=== PATIENT | female | born 1985 | race Caucasian/White ===

== ENCOUNTER → 2017-12-26 09:00 | Outpatient (CLI) | payer OTHER, BC, SELFPAY | PROVIDERS: Family Provider Internal Medicine; PCP Internal Medicine; Visit Provider Internal Medicine | DX: G47.10 Hypersomnia, unspecified (principal) | CPT/HCPCS: 95806 ==

== ENCOUNTER → 2017-12-27 13:26 | Outpatient (CLI) | payer OTHER, BC, SELFPAY ==
--- NOTE | 2017-12-27 13:29 | US_ITS ---
STUDY: ULTRASOUND BREAST - RIGHT REASON FOR EXAM: Female, 32 years old. Pain in the right breast. TECHNIQUE: Axial and longitudinal images of the RIGHT breast were performed with a high resolution ultrasound transducer. COMPARISON: Comparison is made with prior mammogram done earlier in the day. FINDINGS: RIGHT Breast: The upper outer aspect of the right breast was examined by ultrasound. There is homogeneous fibroglandular tissue. No solid or cystic mass lesion is seen. US/Breast Limited Unilateral IMPRESSION: Unremarkable sonographic examination of the upper outer quadrant of the right breast. ASSESSMENT CATEGORY: BIRADS Category 1: Negative. A letter regarding these results will be sent to the patient by the facility within 30 days. Electronically Signed: Watson Meadows MD at 7:52 EDT Tel [phone], Service support ,
--- NOTE | 2017-12-27 13:48 | BI_ITS ---
MAMMOGRAPHY - BILATERAL DIAGNOSTIC REASON FOR EXAM: Female, 32 years old. Right lateral breast tenderness. PERTINENT HISTORY: Non-contributory. TECHNIQUE: Digital bilateral breast kathia (3D mammographic acquisition) in the CC and MLO projections. 2-D mediolateral oblique (MLO) and craniocaudad (CC) views of both breasts were obtained. CAD: Full Field Digital Mammography with Computer Added Detection was performed. COMPARISON: Comparison is made with prior operative examination dated September 11, 2012. FINDINGS: Breast Composition: There are scattered areas of fibroglandular density. There are no dominant masses or suspicious calcifications. No other significant abnormalities are identified. There has been no significant change since the prior study. BI/DIAG MAMM W/CAD, BILAT IMPRESSION: Stable bilateral diagnostic mammogram. With the patient's history of tenderness along the lateral aspect of the right breast, correlation with ultrasound is recommended. ASSESSMENT CATEGORY: BIRADS Category 0: Incomplete. Need additional imaging evaluation. A letter regarding these results will be sent to the patient by the facility within 30 days. Approximately 10% of breast cancers are not detected by mammography. A normal mammogram should not delay biopsy of a clinically suspicious abnormality. Electronically Signed: Watson Meadows MD at 7:51 EDT Tel [phone], Service support ,
== END ==
PROVIDERS: Family Provider Internal Medicine; PCP Internal Medicine; Visit Provider Internal Medicine
DX: N64.4 Mastodynia (principal)
CPT/HCPCS: 76642; 77062; 77066; G0279

== ENCOUNTER 2019-05-14 11:18 | Day surgery (SDC) | payer OTHER, BC, SELFPAY ==
--- NOTE | 2019-05-09 09:05 | PCM.HP.BLA ---
History and Physical Date of Admission: 05/14/19 Pre-Op History and Physical ? HPI: The patient is a 33 year old female presenting for pre-operative visit. She is scheduled for?hysteroscopy with endometrial ablation and cauterization of ectropion, for?menorrhagia and postcoital bleeding on?05/14/2018. ??Procedure discussed along with risks, benefits and complications. ?Other alternatives discussed for management. Consent form signed??yes.? PAST?MEDICAL?HISTORY PAST MEDICAL HISTORY Diagnosis Date ? Diarrhea ? ? Dysmenorrhea ? ? Transient hypertension of , antepartum ? ? Unspecified hemorrhoids without mention of complication ? ? ? PAST?SURGICAL?HISTORY PAST SURGICAL HISTORY Procedure Laterality Date ? HYSTEROSCOPY ? 07/27/2014 ? OVARIAN CYSTECTOMY ? 07/27/2014 ? PAST SURGICAL HISTORY OF ? 12/07 ? SHOULDER SURGERY ? ? CURRENT?MEDICATIONS Current Outpatient Medications Medication Sig Dispense Refill ? levonorgestrel-ethinyl estradiol (SIXTO) 0.15-0.03 mg per tab Take 1 tablet by mouth once daily. 1 Package 12 ? multivitamin (DAILY MULTI-VITAMIN) ORAL tablet ? ? 0 ? fluconazole (DIFLUCAN) 150 mg tablet Take 1 tablet today and repeat in 3 days if symptoms haven't improved. (Patient not taking: Reported on 12/11/2018 ) 2 tablet 0 ? naproxen (NAPROSYN) 375 mg tablet Take 1 tablet by mouth three times daily as needed (pain). (Patient not taking: Reported on 01/29/2019 ) 60 tablet 1 ? No current facility-administered medications for this visit.? ? ALLERGIES:?Patient has no known allergies. ? PERSONAL HISTORY:? SOCIAL?HISTORY Social History ??Socioeconomic History ?Marital status: ?Spouse name: DEVANTE ?Number of children: 3 ?Years of education: 16 ?Highest education level: Not on file ??Occupational History ?Occupation: TEACHER ?Employer: [email or web address] ?Comment: [employer] ??Social Needs ?Financial resource strain: Not on file ?Food insecurity: ?Worry: Not on file ?Inability: Not on file ?Transportation needs: ?Medical: Not on file ?Non-medical: Not on file ??Tobacco Use ?Smoking status: Never Smoker ?Smokeless tobacco: Never Used ??Substance and Sexual Activity ?Alcohol use: No ?Drug use: No ?Sexual activity: Yes ?Partners: Male ? control/protection: Surgical ?Comment: had vasectomy ??Lifestyle ?Physical activity: ?Days per week: Not on file ?Minutes per session: Not on file ?Stress: Not on file ??Relationships ?Social connections: ?Talks on phone: Not on file ?Gets together: Not on file ?Attends moravian service: Not on file ?Active member of club or organization: Not on file ?Attends meetings of clubs or organizations: Not on file ?Relationship status: Not on file ?Intimate partner violence: ?Fear of current or ex partner: Not on file ?Emotionally abused: Not on file ?Physically abused: Not on file ?Forced sexual activity: Not on file ??Other Topics ?Concerns: ?Not on file ??Social History Narrative ?Not on file ? FAMILY HISTORY:? FAMILY?HISTORY FAMILY HISTORY Problem Relation Age of Onset ? Hypertension Father ? ? Arthritis Maternal Grandmother ? ? Colon Cancer Maternal Grandfather ? ? Diabetes Paternal Grandmother ? ? Heart Paternal Grandfather ?[place] ? Breast Cancer Other ?PGAUNT X 2 ? REVIEW OF SYMPTOMS: GENERAL: denies fevers or chills ENDOCRINOLOGY: has not been on steroids Cardiology : denies palpitations or chest pain Respiratory: denies SOB or cough Hematology: denies history of prolonged bleeding or easy bruising or VTE Allergy: Denies history of personal or family history of allergy to anesthesia ? ? PHYSICAL EXAMINATION: ? VITALS:?Height 5' 4.25 (1.632 m), weight 202 lb (91.6 kg), last menstrual period 05/07/2019. ? GENERAL:??The patient is well nourished, well hydrated in no acute distress. ?, The patient is oriented to time, place, and person. NECK:?Supple. No lynphadenopathy, normal thyroid, no thyromegaly. LUNGS:?Clear to auscultation bilaterally. no wheezes, rhonchi or rales HEART:?Regular rate and rhythm, Normal heart sounds and No murmurs or gallops ??? IMPRESSION:?menorrhagia, postcoital bleeding w/ large ectropion ? PLAN:???The risks/benefits/alternatives and personal involved for the planned?hysteroscopy with endometrial ablation and cauterization of ectropion?were reviewed with the patient. Her questions were answered to her satisfaction and she desires to proceed. ?Consent was signed. ?I reviewed with her postop instructions and expectations. ? ? I have reviewed and updated past medical and surgical history, medications and allergies. This history and physical was completed in my office on 05/08/2019.
[2019-05-14] VITALS (7 sets, daily range): BP systolic 118–136; BP diastolic 67–91; PULSE 60–85; RESP 14–16; TEMP 36.1–36.8; O2SAT 97–99; BMI 34.2
[2019-05-14 11:44] LABS: Hematocrit 43.6 % (37-47); Hemoglobin 14.6 g/dL (12.0-15.0); Mean Corp Hgb Conc 33.5 g/dL (32-36); Mean Corpuscular Hgb 28.9 pg (27.0-32.0); Mean Corpuscular Volume 86.2 fL (81-99); Mean Platelet Vol. 9.7 fl (6.2-12.0); Platelet Count 274 K/mm3 (150-450); RBC Distribution Width CV 11.9 % (11.6-14.6); RBC Distribution Width SD 37.3 fl (35.1-43.9); Red Blood Count 5.06 M/mm3 (4.2-5.4); White Blood Count 7.5 K/mm3 (4.4-11.0)
[2019-05-14 11:48] LABS: Internal QC Validated? YES +Cl - CLEAR BKGD; Pregnancy, Urine Negative Negative
[2019-05-14] MEDS: Celecoxib 200 MG Capsule 400 MG PO (11:59)
[2019-05-14] MEDS: Acetaminophen 500 MG Tablet 1000 MG PO (11:59)
[2019-05-14] MEDS: Lactated Ringers 1,000 ML 75 ML IV (12:10)
[2019-05-14] MEDS: Lactated Ringers 1,000 ML 40 ML IV (12:10)
--- NOTE | 2019-05-14 13:55 | DCINST_ITS ---
Discharge Diet: No Restrictions Discharge Activity: Return to Normal Activity, May Shower, May Take a Tub Bath - in 2 weeks. Return to work on:: 05/18/19 May resume sexual activity in: 2 weeks Call your doctor if your incision/area has: Sudden Increased Bleeding, Foul Smelling Discharge Call your doctor if you observe: Fever of 101 or Higher, Using more than one pad per hour - for 2 hrs in a row Allergies/Adverse Reactions: Allergies No Known Allergies Allergy (Verified 05/12/19 15:29) Medications to take at Discharge Multivitamins,Therapeutic [Multivitamin] 1 tab PO DAILY 07/20/14 Primary Care Physician: Natasha Mojica MD [Primary Care Provider] - Test Results: Test results from this visit will be discussed in further detail at your follow- up appointment, if applicable. Please Follow Up With: Kalyn Nguyen MD - [phone]
--- NOTE | 2019-05-14 13:56 | PCM.OPRPT ---
Report of Operation Date of Procedure: 05/14/19 Pre-Operative Diagnosis: Postcoital bleeding and menorrhagia Post-Operative Diagnosis: Same Surgery/Procedure Performed:: Hysteroscopy with Savanah endometrial ablation and cauterization of ectocervix Description of Surgical Findings:: Normal cervix and vagina, normal endometrial cavity casing material weigher: miah payan Type of Anesthesia:: MAC/Supplemental/Local Anesthesiologist: Terry Martinez Special Medications: none Specimen's removed: none Drains: none Estimated Blood Loss (mL): 10 Fluids Replaced: 1000 cc Description of Procedure: The patient was taken to the OR where she was prepped and draped in dorsal lithotomy position. The weighted speculum was placed in the vagina and the anterior lip of the cervix was grasped with a single-tooth tenaculum. A paracervical block was administered with 1% lidocaine with 1-100,000 epinephrine solution. The cervix was dilated serially with Hegar dilators. The 5mm hysteroscope was placed into the uterine cavity and the above findings were noted. Bilateral tubal ostia were identified. The uterus sounded to 10cm and the cervical length was 4cm. The endometrial cavity length was 6cm. The hysteroscope was removed. The Savanah device was set to 6cm. The instrument was then seated into the endometrial cavity and the indicator was in the green. The cervical seal balloon was inflated and the uterine integrity test was passed. The ablation procedure was initiated and completed without interruption. During the ablation procedure gentle traction was held on the tenaculum and the Savanah device was held up against the uterine fundus. When the ablation procedure was completed the Savanah was removed. The ball cautery was used to cauterize the ectocervix. The tenaculum was removed and the ball cautery was used to cauterize the tenaculum sites that were bleeding. Then the tenaculum site was noted to be hemostatic. All sponge and needle counts were correct. A vaginal sweep was performed by me. The patient was awakened and taken to the recovery room in stable condition. Hysteroscopic ins: 200cc normal saline Hysteroscopic outs:150cc Findings: Endometrial cavity: Normal, no fibroids or polyps noted Cervix: Normal Vagina: Normal Grafts/Implants Used: none - Complications none - Admit VTE Documentation VTE Present on Admission: No VTE Mechan Device Prophylaxis: SCD's VTE Pharm Prophylaxis ordered?: No Reason prophylaxis not ordered:: Procedure Not Indicated
== END 2019-05-14 14:55 | disposition home or self-care (01) ==
LOC: SDC 11:23 → AC 11:24
PROVIDERS: Family Provider Internal Medicine; PCP Internal Medicine; Referring Provider Obstetrics & Gynecology; Visit Provider Obstetrics & Gynecology
PROC: 0U5B8ZZ Destruction of Endometrium, Via Natural or Artificial Opening Endoscopic (ICD-10-PCS; CPT 58558; principal; 2019-05-14 13:05)
DX: N93.0 Postcoital and contact bleeding (principal); N92.0 Excessive and frequent menstruation with regular cycle
CPT/HCPCS: 58563; 81025; 85027; J7120

== ENCOUNTER → 2019-12-09 | Outpatient (CLI) | payer OTHER, BC, SELFPAY ==
[2019-11-10 15:54] VITALS: BMI 34.2
[2019-12-09 13:15] LABS: Cholesterol 155 mg/dL (200); High Density Lipoprotein 48 mg/dL; T4 Free Direct 0.88 ng/dL (0.76-1.46); Thyroid Stim Hormone (TSH) 3.18 uIU/mL (0.358-3.74); Triglycerides 65 mg/dL; Very Low Density Lipoprotein 13 mg/dL (5-40)
[2019-12-16 05:00] LABS: T3 Reverse 13.9 ng/dL (9.2-24.1)
== END | disposition home or self-care (01) ==
LOC: BIMLAB 09:50
PROVIDERS: PCP Internal Medicine; Referring Provider Internal Medicine; Visit Provider Internal Medicine
DX: E03.9 Hypothyroidism, unspecified (principal)
CPT/HCPCS: 36415; 80061; 84439; 84443; 84482

== ENCOUNTER → 2019-12-22 | Outpatient (CLI) | payer OTHER, BC, SELFPAY ==
[2019-12-22 10:46] VITALS: BMI 34.2
--- NOTE | 2019-12-22 11:50 | EKG12_ITS ---
Test Reason : HTN Blood Pressure : / mmHG Vent. Rate : 060 BPM Atrial Rate : 060 BPM P-R Int : 156 ms QRS Dur : 096 ms QT Int : 430 ms P-R-T Axes : 012 070 025 degrees QTc Int : 430 ms Normal sinus rhythm Normal ECG Confirmed by MADELEINE MORE, MARY ([id number]), newspaper photo editor DESI WILSON ([id number]) on 12/23/2019 1:10:26 PM Referred By: Natasha Mojica Confirmed By:MARY SALVADOR MD
[2019-12-22 13:18] LABS: Anion Gap 7 (5-15); BUN 20 mg/dL (7-18); BUN/Creat Ratio 25.3 RATIO (10-20); Calcium,Total 8.5 mg/dL (8.5-10.1); Chloride 106 mmol/L (98-107); Creatinine, Serum 0.79 mg/dL (0.55-1.02); EST Glomerular Filtration Rate 88 mL/min (>60); Est Glom Filt Rate - Afr Amer 107 mL/min (>60); Glucose 96 mg/dL (74-106); Potassium 4.1 mmol/L (3.5-5.1); Sodium Level 140 mmol/L (136-145)
[2019-12-22 13:23] LABS: Hemoglobin A1c 4.7 % (3.8-5.6)
== END | disposition home or self-care (01) ==
PROVIDERS: PCP Internal Medicine; Referring Provider Internal Medicine; Visit Provider Internal Medicine
DX: E66.9 Obesity, unspecified (principal); R03.0 Elevated blood-pressure reading, without diagnosis of hypertension
CPT/HCPCS: 80048; 83036; 93005

== ENCOUNTER → 2020-01-29 | Outpatient (CLI) | payer OTHER, BC, SELFPAY ==
[2020-01-29 10:27] VITALS: BMI 34.2
[2020-01-29 12:28] LABS: Absolute Lymphocyte Count 2.55 X10^3/uL (0.83-4.51); Absolute Neutrophil Count 4.3 X10^3/uL (2.0-7.7); Basophil# 0.03 X10^3/uL; Basophil% 0.4 % (0-1); Eosinophil# 0.13 X10^3/uL; Eosinophils% 1.7 % (0-5); Hematocrit 44.6 % (37-47); Hemoglobin 14.5 g/dL (12.0-15.0); Lymphocyte # 2.55 X10^3/ul (4.0); Lymphocyte % 33.3 % (19-41); Mean Corp Hgb Conc 32.5 g/dL (32-36); Mean Corpuscular Hgb 28.7 pg (27.0-32.0); Mean Corpuscular Volume 88.1 fL (81-99); Mean Platelet Vol. 10.3 fl (6.2-12.0); Monocyte# 0.61 X10^3/uL; NRBC Flagged by Analyzer 0 % (0-5); Neutrophil # 4.29 X10^3/uL (2.7-7.7); Neutrophil % 56.1 % (47-70); Platelet Count 288 K/mm3 (150-450); RBC Distribution Width CV 11.9 % (11.6-14.6); RBC Distribution Width SD 38.5 fl (35.1-43.9); Red Blood Count 5.06 M/mm3 (4.2-5.4); White Blood Count 7.7 K/mm3 (4.4-11.0)
[2020-01-29 12:42] LABS: ALB/GLOB Ratio 0.9 RATIO (0.9-2.4); AST(SGOT) 22 U/L (15-37); Alanine Aminotransfer ALT/SGPT 37 U/L (13-56); Albumin, Serum 3.6 g/dL (3.2-5.0); Alkaline Phosphatase 95 U/L (45-117); Anion Gap 5 (5-15); BUN 18 mg/dL (7-18); BUN/Creat Ratio 19.8 RATIO (10-20); Calcium,Total 8.8 mg/dL (8.5-10.1); Chloride 106 mmol/L (98-107); Creatinine, Serum 0.91 mg/dL (0.55-1.02); EST Glomerular Filtration Rate 75 mL/min (>60); Est Glom Filt Rate - Afr Amer 91 mL/min (>60); Globulin 3.8 g/dL (2.2-4.2); Glucose 83 mg/dL (74-106); Potassium 3.9 mmol/L (3.5-5.1); Protein, Total 7.4 g/dL (6.4-8.2); Sodium Level 139 mmol/L (136-145)
== END | disposition home or self-care (01) ==
LOC: BIMLAB 10:52
PROVIDERS: PCP Internal Medicine; Referring Provider Internal Medicine; Visit Provider Internal Medicine
DX: E66.9 Obesity, unspecified (principal)
CPT/HCPCS: 36415; 80053; 85025

== ENCOUNTER → 2020-02-27 | Outpatient (CLI) | payer OTHER, BC, SELFPAY ==
[2020-02-25 16:22] VITALS: BMI 34.2
[2020-02-27 11:07] LABS: Absolute Lymphocyte Count 2.93 X10^3/uL (0.83-4.51); Absolute Neutrophil Count 4.5 X10^3/uL (2.0-7.7); Basophil# 0.04 X10^3/uL; Basophil% 0.5 % (0-1); Eosinophil# 0.18 X10^3/uL; Eosinophils% 2.2 % (0-5); Hemoglobin 14.3 g/dL (12.0-15.0); Lymphocyte # 2.93 X10^3/ul (4.0); Lymphocyte % 35.3 % (19-41); Mean Corp Hgb Conc 33.3 g/dL (32-36); Mean Corpuscular Hgb 29.2 pg (27.0-32.0); Mean Corpuscular Volume 87.8 fL (81-99); Mean Platelet Vol. 9.9 fl (6.2-12.0); Monocyte# 0.61 X10^3/uL; Monocyte% 7.4 % (0-10); NRBC Flagged by Analyzer 0 % (0-5); Neutrophil # 4.51 X10^3/uL (2.7-7.7); Neutrophil % 54.4 % (47-70); Platelet Count 270 K/mm3 (150-450); RBC Distribution Width CV 12.1 % (11.6-14.6); RBC Distribution Width SD 38.6 fl (35.1-43.9); White Blood Count 8.3 K/mm3 (4.4-11.0)
[2020-02-27 11:46] LABS: ALB/GLOB Ratio 0.9 RATIO (0.9-2.4); AST(SGOT) 13 U/L (15-37); Alanine Aminotransfer ALT/SGPT 24 U/L (13-56); Albumin, Serum 3.2 g/dL (3.2-5.0); Alkaline Phosphatase 84 U/L (45-117); Anion Gap 2 (5-15); BUN 15 mg/dL (7-18); BUN/Creat Ratio 15.9 RATIO (10-20); Calcium,Total 8.6 mg/dL (8.5-10.1); Chloride 108 mmol/L (98-107); Creatinine, Serum 0.94 mg/dL (0.55-1.02); EST Glomerular Filtration Rate 72 mL/min (>60); Est Glom Filt Rate - Afr Amer 87 mL/min (>60); Globulin 3.7 g/dL (2.2-4.2); Glucose 83 mg/dL (74-106); Potassium 4.2 mmol/L (3.5-5.1); Protein, Total 6.9 g/dL (6.4-8.2); Sodium Level 139 mmol/L (136-145)
== END | disposition home or self-care (01) ==
LOC: LAB 10:43
PROVIDERS: PCP Internal Medicine; Referring Provider Internal Medicine; Visit Provider Internal Medicine
DX: E66.9 Obesity, unspecified (principal); R03.0 Elevated blood-pressure reading, without diagnosis of hypertension
CPT/HCPCS: 36415; 80053; 85025

== ENCOUNTER 2022-08-02 06:21 | Day surgery (SDC) | payer OTHER, SELFPAY ==
--- NOTE | 2022-07-23 16:42 | PCM.HP.BLA ---
History and Physical Date of Admission: 08/02/22 HPI: The patient is a 36 year old female presenting for pre-operative visit. She is scheduled for TLH, bilateral salpingectomy, for menorrhagia, intramural uterine fibroids and failed endometrial ablation on 08/02/22. Procedure discussed along with risks, benefits and complications. Other alternatives discussed for management. Consent form signed? Yes. ? ? PAST MEDICAL HISTORY PAST MEDICAL HISTORY Diagnosis Date ? Diarrhea ? ? Dysmenorrhea ? ? Transient hypertension of , antepartum ? ? Unspecified hemorrhoids without mention of complication ? ? ? PAST SURGICAL HISTORY PAST SURGICAL HISTORY Procedure Laterality Date ? CAUTERY CERVIX ELECTRO/THERMAL ? 05/14/2019 ? cauterization of ectocervix due to postcoital bleeding ? HYSTEROSCOPY ? 07/27/2014 ? HYSTEROSCOPY ENDOMETRIAL ABLATION ? 05/14/2019 ? Hysteroscopy w/ Savanah ? OVARIAN CYSTECTOMY ? 07/27/2014 ? PAST SURGICAL HISTORY OF ? 12/07 ? SHOULDER SURGERY ? ? ? CURRENT MEDICATIONS Current Outpatient Medications Medication Sig Dispense Refill ? norethindrone (AYGESTIN) 5 mg tablet Take 1 tablet by mouth once daily. start when your next menses is ending 28 tablet 0 ? multivitamin tablet ? ? 0 ? hydroCHLOROthiazide (HYDRODIURIL, ESIDRIX) 12.5 mg tablet Take 12.5 mg by mouth once daily. (Patient not taking: Reported on 06/20/2022) ? ? ? lisinopril (ZESTRIL, PRINIVIL) 5 mg tablet TAKE 1 TABLET BY MOUTH EVERYDAY AT BEDTIME (Patient not taking: Reported on 06/20/2022) ? ? ? sertraline (ZOLOFT) 25 mg tablet TAKE 1 TABLET BY MOUTH EVERYDAY AT BEDTIME (Patient not taking: Reported on 06/20/2022) ? ? ? benzonatate (TESSALON PERLE) 100 mg capsule Take 1-2 capsules tid prn, no more than 6 in 24 hours. (Patient not taking: No sig reported) 30 capsule 0 ? No current facility-administered medications for this visit. ? ? ALLERGIES: Patient has no known allergies. ? PERSONAL HISTORY: SOCIAL HISTORY Social History ? Tobacco Use ? Smoking status: Never ? Smokeless tobacco: Never Vaping Use ? Vaping Use: Never used Substance Use Topics ? Alcohol use: No ? Drug use: No ? FAMILY HISTORY: FAMILY HISTORY FAMILY HISTORY Problem Relation Age of Onset ? Hypertension Father ? ? Arthritis Maternal Grandmother ? ? Colon Cancer Maternal Grandfather ? ? Diabetes Paternal Grandmother ? ? Heart Paternal Grandfather ? ? OR ? Breast Cancer Other ? ? PGAUNT X 2 ? ? REVIEW OF SYMPTOMS: GENERAL: denies fevers or chills ENDOCRINOLOGY: has not been on steroids Cardiology : denies palpitations or chest pain Respiratory: denies SOB or cough Hematology: denies history of prolonged bleeding or easy bruising or VTE Allergy: Denies history of personal or family history of allergy to anesthesia ? PHYSICAL EXAMINATION: ? VITALS: Blood pressure 122/80, pulse 66, resp. rate 16, height 5' 4 (1.626 m), weight 213 lb 11.2 oz (96.9 kg), last menstrual period 07/09/2022. ? GENERAL: The patient is well nourished, well hydrated in no acute distress. , The patient is oriented to time, place, and person. NECK: Supple. No lynphadenopathy, normal thyroid, no thyromegaly. LUNGS: Clear to auscultation bilaterally. no wheezes, rhonchi or rales HEART: Regular rate and rhythm, Normal heart sounds, and No murmurs or gallops ? IMPRESSION: intramural uterine fibroids, menorrhagia, failed endometrial ablation ? Pelvic US 12/27/21: Indication Follow-up on uterine fibroids Impression Anteverted fibroid uterus that measures 122 mm x 97 mm x 107 mm. There is a fundal, intramural fibroid as noted below: Fibroid(s): Size 87 mm x 85 mm x 86 mm. Mean 86.0 mm. Vol 332.993 cm?. The central endometrium complex measures 7.4 mm in combined thickness. No abnormal ?blood flow to suggest a polyp or focal endometrial pathology is observed within the endometrial complex. The right ovary is normal appearing. The left ovary is not visualized. There is no free fluid visualized in the peritoneal cavity. Recommendations Fibroid stable in size. Follow up as clinically indicated. Menstrual History LMP on 12/21/2021 Method Transvaginal, 3D ultrasound examination, Color Doppler examination Uterus Uterus: Visualized Uterus position: anteverted Uterus long 122 mm Uterus ap 97 mm Uterus tr 107 mm Uterus Vol 655.7 cm? Endometrial thickness, total 7.4 mm Uterine fibroid D1 87 mm Uterine fibroid D2 85 mm Uterine fibroid D3 86 mm Uterine fibroid mean 86.0 mm Uterine fibroid vol 332.993 cm? Uterine fibroids findings: Anterior Right Ovary Rt ovary: Visualized Rt ovary D1 34 mm Rt ovary D2 30 mm Rt ovary D3 20 mm Rt ovary Vol 10.7 cm? Left Ovary Lt ovary: Not visualized ? ? PLAN: The risks/benefits/alternatives and personal involved for the planned TLH, bilateral salpingectomy were reviewed with the patient. Her questions were answered to her satisfaction and she desires to proceed. Consent was signed. I reviewed with her postop instructions and expectations. ? ? I have reviewed and updated past medical and surgical history, medications and allergies
[2022-08-02] VITALS (11 sets, daily range): BP systolic 129–146; BP diastolic 70–95; PULSE 65–97; RESP 16–18; TEMP 36–36.7; O2SAT 95–100; BMI 35.9
[2022-08-02] MEDS: Lactated Ringers 1,000 ML 40 ML IV (06:35)
[2022-08-02 06:54] LABS: Internal QC Validated? YES +Cl - CLEAR BKGD; Pregnancy, Urine Negative Negative
[2022-08-02 07:01] LABS: Hematocrit 42.2 % (37-47); Hemoglobin 14.3 g/dL (12.0-15.0); Mean Corp Hgb Conc 33.9 g/dL (32-36); Mean Corpuscular Hgb 29.1 pg (27.0-32.0); Mean Corpuscular Volume 85.9 fL (81-99); Mean Platelet Vol. 9.9 fl (6.2-12.0); Platelet Count 285 K/mm3 (150-450); RBC Distribution Width CV 12.5 % (11.6-14.6); RBC Distribution Width SD 39.1 fl (35.1-43.9); Red Blood Count 4.91 M/mm3 (4.2-5.4); White Blood Count 11.2 K/mm3 (4.4-11.0)
[2022-08-02] MEDS: Scopolamine 1mg/72hr Patch 1 PATCH TD (07:06)
[2022-08-02] MEDS: Enoxaparin 40 MG/0.4 ML Syringe SC (07:09)
[2022-08-02] MEDS: Celecoxib 200 MG Capsule 400 MG PO (07:10)
[2022-08-02] MEDS: Acetaminophen 500 MG Tablet 1000 MG PO (07:11)
[2022-08-02] MEDS: Gabapentin 600 MG Tablet PO (07:12)
[2022-08-02] MEDS: Phenazopyridine 95 MG Tablet 190 MG PO (07:12)
[2022-08-02 07:45] LABS: Bedside Glucose 138 mg/dL (74-106)
--- NOTE | 2022-08-02 08:40 | HYST_PTH ---
PATIENT: ABRAHAM PIERRE [place] [facility] [place][id number] AGE/SX: 36/F ROOM: RE08/02/[address]: Dr. Kalyn Nguyen MD : 1985 BED: DIS: 08/02/2022 SPEC #: [id number] RECD: 08/02/22 12:34 STATUS: JEANINE REJenny #: [id number] LILIA: 08/02/22 08:[address]: Kalyn Nguyen DEPT: SURGICAL PATHOLOGY RECD BY: Michelle Allen ENTERED: 08/02/22 13:31 SP TYPE: HYSTERECT OTHR DR: Kendra Grande, MABEL Tissues: Uterus, NOS Procedures: Surgery Specimen Level V HEADER OPERATION: ERAS, total laparoscopic hysterectomy, bilateral salpingectomy PRE-OP DIAGNOSIS: Intramural uterine fibroids, menorrhagia, failed endometrial ablation TISSUE SUBMITTED: Uterus, cervix, bilateral fallopian tubes MICROSCOPIC DIAGNOSIS Uterus, hysterectomy: Cervix ? nabothian cysts, squamous metaplasia and mild chronic inflammation. Endometrium ? transition endometrium. Myometrium ? adenomyosis. Rubbery fragment free in container ? leiomyoma. Right and left fallopian tubes ? benign paratubal cysts. AM:micaela 08/03/2022 MICROSCOPIC DESCRIPTION Slides are reviewed. GROSS DESCRIPTION Received in fixative is one container labeled with the patient's name and designated uterus. The specimen consists of a macerated uterus received in six fragments ranging in size from 2 to 15.5 cm and weighing in aggregate 750 gm. Serial sections do not reveal a distinct endometrial cavity. The myometrium measures approximately 3 cm in average thickness. Present free in the container is an oval, rubbery, stephens-white nodule measuring 12 x 9 x 7.5 cm and weighing 353 gm. Serial sections of the nodule reveal whorled, stephens-white cut surfaces without areas of cyst formation, hemorrhage or necrosis. Present free in the container are two fallopian tubes with average lengths of 5 cm and average diameters of 0.6 cm. The fimbrial ends of both fallopian tubes are grossly unremarkable. [employer] sections are submitted as follows: 1 - ecto- and endocervix, 2-5 - myometrium and adjacent presumed endometrium, 6-8 - lobulated mass free in container, 9 - one fallopian tube, 10 - the other fallopian tube. / AM:micaela 08/02/2022 TC:1 CPT: 24521
[2022-08-02] MEDS: Cefazolin 2 GM in 0.9% Normal Saline 100 ML IV (08:48)
[2022-08-02] MEDS: dexAMETHasone 10 MG/ML Vial 8 MG IV (09:10)
[2022-08-02] MEDS: Ondansetron 4 MG/2 ML Vial IV (11:28)
[2022-08-02] MEDS: Bupivacaine Mpf 0.5% 30 ML VIAL (11:50)
--- NOTE | 2022-08-02 11:51 | PCM.OPRPT ---
Problems Associated Problem List Diagnoses (1) Adenomyosis: (2) Uterine fibroid: (3) Dysmenorrhea: (4) Post endometrial ablation syndrome: Report of Operation Date of Procedure: 08/02/22 Pre-Operative Diagnosis: adenomyosis, uterine fibroid, dysmenorrhea, enlarged uterus, postablation syndrome Post-Operative Diagnosis: same Surgery/Procedure Performed:: TLH for uterus > 250 g and bilateral salpingectomy Description of Surgical Findings:: enlarged uterus, 778 gm, normal ovaries and tubes and otherwise normal peritoneal cavity Surgeon: Kalyn Nguyen remote advisor: Paola Benedict remote advisor: MARKIE Crocker Type of Anesthesia: General Anesthesiologist: Barbara Covington Special Medications: none Specimen's removed: uterus, cervix, bilateral fallopian tubes Drains: menjivar removed at end of the procedure Estimated Blood Loss (mL): 100 Fluids Replaced: 2000 Description of Procedure: The patient was taken to the operating room where she was prepped and draped in the dorsal lithotomy position. Her arms were tucked to the side and padded and her legs were placed in the yellowfin stirrups. Care was taken to ensure that she was placed in a neurologically safe and neutral position. A weighted speculum was placed in the vagina and the anterior lip of the cervix was grasped with a single-tooth tenaculum. The cervix sounded to 10 centimeters. 2-0 Vicryl sutures were secured to the cervix at 3 and 9:00. The 3.5 centimeter uterine behavioral health worker was placed into the cervix and the balloon inflated. The stay sutures were placed through the cup and secured down to the cervix. Once the behavioral health worker was secured to the cervix the Menjivar catheter was placed to straight drain. Attention was turned to the abdominal portion of the case. Before skin incisions were made they were infiltrated with 0.5% Marcaine solution for local anesthetic. A 5 mm intraumbilical incision was made and while tenting the anterior abdominal wall up with towel clamps a 5 mm blade less trocar and sleeve were advanced directly into the peritoneal cavity with the Visiport. Peritoneal placement was confirmed with the laparoscope the pneumoperitoneum was created, and the underlying abdominal contents were intact. The patient was placed in Trendelenburg and the above findings were noted. Right and left lateral 5 mm trochars were placed under direct visualization without difficulty. Because of the size and width of the uterus, decision was made to place a left upper quadrant port. This was placed under direct visualization. The antimesenteric portion of the tube was clamped sealed and transected serially on both sides with the LigaSure device. The round ligaments were clamped sealed and transected and a window was made in the peritoneum. The utero-ovarian ligaments were then clamped sealed and transected with the LigaSure device and the pedicles were hemostatic. Extra time was required because of the difficulty manipulating the rather large uterus. We had to use a tenaculum to help move it. And place a fourth port. We had to reposition her instruments several times. Dr. Brock provided tissue manipulation, camera guidance and tissue dissection. Case was very technically difficult because of the width of the uterus. We had to use a 30 degree scope to help with visualization. The bladder flap was dissected down with the LigaSure device and blunt dissection and the uterine arteries were then skeletonized. The uterine arteries were clamped sealed and transected on both sides with the LigaSure device. Then along the cardinal ligament uterine arteries adjacent to the cervix were clamped sealed and transected with the LigaSure device to move them away from the vaginal cuff angle. At this point the pedicles were all examined and found to be hemostatic. There had been some backbleeding from the uterus and the tenaculum sites during this portion of the case and that is where the majority of the blood loss during the surgery came from. The bladder flap was rechecked and found to be adequately down. The monopolar tip of the LigaSure device was then used to enter the anterior vagina. The vaginal manipulator cup was noted in the vaginal colpotomy incision was made circumferentially around the cup. When the 3 and 9:00 positions of the cervicovaginal junction were reached these were clamped sealed and transected with the LigaSure device to secure any small remaining vessels. At this point the pedicles were hemostatic from above and attention was turned to the vaginal portion of the case again. Decision was made to bivalve the uterus. This again took at least 10 extra minutes to remove the uterus from the vagina. Kelly clamps were then used to grasp the sides of the cervix and the uterus was bivalved with the scalpel. When we got at the high in the uterus as we could see and safely bivalve we pushed 1 side up and pulled the other side down. We then removed a large piece of the uterus and continued to pull it down. We then remove the rest of the uterus minus a fibroid. The fibroid was then grasped with Kelly clamps and brought out through the uterine incision. The uterus was weighed and was 778 g There is some bleeding from the left vaginal cuff angle and this was grasped with an Allis clamp. Vaginal angle sutures were placed on both sides with 0 Vicryl sutures and care was taken to ensure that the uterosacral ligament was secured into this stitch. The posterior vaginal cuff was run with an 0 Vicryl suture. A 2-0 PDS was then used to place a Mitchell's suture through the midline of the vagina reefing across the posterior peritoneum to the left uterosacral ligament back across to the right and back out through the midline. The remainder the vagina was then closed horizontally with interrupted 0 Vicryl sutures. The cuff was hemostatic vaginally. The Mitchell's was secured down. The Menjivar catheter was removed and a cystoscopy was performed. The bladder appeared normal and was intact. Both ureteral orifices were noted and both ureteral jets were seen. The cystoscope was removed and the Menjivar catheter was placed back to straight drain. A sponge stick was placed in the vagina to help place traction against the vaginal cuff and the pneumoperitoneum was re-created. The suction health safety engineer was used to remove any blood and clots from the peritoneal cavity. The pedicles were reexamined and found to be hemostatic. The vaginal cuff was hemostatic. Some Bridget was placed over the cuff and the pedicles and no active bleeding was noted through the Bridget. The right and left lateral ports were taken out and the sites were hemostatic. The pneumoperitoneum was released and even under low pressure there was no bleeding of any of the pedicles are vaginal cuff. The umbilical port and left upper quadrant port were removed. The umbilical skin incisions were closed with Monocryl suture and skin glue by Dr. Brock. The vaginal instruments were removed by me and a vaginal sweep was completed by me. The surgery was performed by me with assistance other than the portions dictated as above. There were no qualified residents available for this procedure. All sponge lap and needle counts were correct and the patient was transferred to the recovery room in stable condition. Grafts/Implants Used: none Procedure Start Time: 09:09 Procedure Stop Time: 11:53 Complications none Admit VTE Documentation VTE Present on Admission: No VTE Mechan Device Prophylaxis: SCD's VTE Pharm Prophylaxis ordered?: No Reason prophylaxis not ordered:: Procedure Not Indicated
--- NOTE | 2022-08-02 12:02 | DCINST_ITS ---
Discharge Instructions Diet Discharge Diet: Light diet - advance as tolerated Activity Discharge Activity: May Drive (in 1 week), May Shower (on 08/03/22 as tolerated) and May Take a Tub Bath (in 6 weeks) May resume sexual activity in: 6-8 weeks Lifting Restrictions: 15 lbx x 6 weeks Dressing / Incision Call your doctor if you observe: Fever of 101 or Higher and Using more than 1 pad per hour Cleanse incision/area with: Soap & Water (your incisions have skin glue, it can get wet, leave it on for 10 days or until it falls off) Follow Up Care Please Follow Up With: Kalyn Nguyen MD When: 1 week or as needed. Test Results: Test results from this visit will be discussed in further detail at your follow- up appointment, if applicable. Discharge Plan Admission Primary Reason for Your Visit: hysterectomy Attending Provider: Kalyn Nguyen Primary Care Provider: Kendra Grande NP Discharge Orders/Prescriptions Prescriptions: New ibuprofen [ibuprofen] 600 MG tablet 600 mg PO Q6H PRN (Reason: Pain) 20 Days Qty: 60 0RF oxycodone 5 MG tablet 5 mg PO Q6H PRN PRN (Reason: severe pain) 7 Days Qty: 12 0RF Continued multivitamin with folic acid 1 TABLET tablet 1 tab PO DAILY Discontinued norethindrone acetate 5 mg tablet 5 mg PO QHS Label Comments: TAKE 1 TABLET BY MOUTH ONCE DAILY. START WHEN YOUR NEXT MENSES IS ENDING Referrals / Follow Up: Kendra Grande NP, [employer]AL RECLAMATION KETTLE TENDER-C [Primary Care Provider] - Disposition Disposition (needs filled in before D/C Order can be placed): Home, Self Care
[2022-08-02] MEDS: Lactated Ringers 1,000 ML 75 ML IV (13:20)
[2022-08-02] MEDS: Ketorolac 30 MG/ML Syringe IV (13:49)
[2022-08-02] MEDS: Acetaminophen 325 MG Tablet 975 MG PO (13:49)
[2022-08-02 14:17] LABS: Hematocrit 42.4 % (37-47); Hemoglobin 14.3 g/dL (12.0-15.0); Mean Corp Hgb Conc 33.7 g/dL (32-36); Platelet Count 288 K/mm3 (150-450); RBC Distribution Width CV 12.5 % (11.6-14.6); RBC Distribution Width SD 39.6 fl (35.1-43.9); Red Blood Count 4.93 M/mm3 (4.2-5.4); White Blood Count 17.8 K/mm3 (4.4-11.0)
[2022-08-02] MEDS: oxyCODONE 5 MG Tablet PO (17:51)
== END 2022-08-02 18:00 | disposition home or self-care (01) ==
LOC: SDC 06:22 → AC 06:24
PROVIDERS: Anesthesiology; PCP Nurse Practitioner Family; Referring Provider Obstetrics & Gynecology; Visit Provider Obstetrics & Gynecology
PROC: 0UT94ZZ Resection of Uterus, Percutaneous Endoscopic Approach (ICD-10-PCS; CPT 58571; principal; 2022-08-02 08:20)
DX: D25.9 Leiomyoma of uterus, unspecified (principal); N88.8 Other specified noninflammatory disorders of cervix uteri; N87.9 Dysplasia of cervix uteri, unspecified; N72 Inflammatory disease of cervix uteri; N83.8 Other noninflammatory disorders of ovary, fallopian tube and broad ligament; N85.2 Hypertrophy of uterus
CPT/HCPCS: 58571; 00840; 81025; 82962; 83735; 85027; 86850; 86900; 86901; 88307; J7120; J2405

== ENCOUNTER 2022-08-24 18:45 | Inpatient (IN) | payer OTHER, SELFPAY ==
[2022-08-24] VITALS (11 sets, daily range): BP systolic 105–188; BP diastolic 69–113; PULSE 84–130; RESP 11–24; TEMP 36.5–37; O2SAT 98–100; BMI 35.4; BMI 35.7
--- NOTE | 2022-08-24 08:13 | CT_ITS ---
PROCEDURE: CT DIRECTED ABSCESS DRAINAGE, PERITONEAL DATE OF EXAMINATION: 08/24/2022. INDICATION: Female, 36 years old. Pelvic abscess PHYSICIAN: Dr. ANDRY Perry CONSENT: Written informed consent was obtained having explained the risks, benefits and alternatives in detail with the patient who accepted the risks and agreed to proceed. Laboratory review and clinical assessment was performed. CONSCIOUS SEDATION PROTOCOL: The Drugs used were: 4 Versed, IV., and 100 Fentanyl, IV. The sedation time was: 38 minutes. Conscious sedation was started at 9:47 AM and terminated at 10:25 AM. The conscious sedation protocol was independently monitored. RADIATION DOSAGE (If Supplied By Facility): CTDIvol = ( 20 ) mGy, DLP = ( 1929.68 ) mGycm Individualized dose optimization techniques were used for this CT. TECHNIQUE: CT sections were made through the abdomen and pelvis revealing an abscess in the cul-de-sac. The skin surface was prepped and draped in a sterile fashion. Multiple attempts were performed for drainage of the fluid collection in the pelvis. Due to the anatomical location of the abscess collection, I was unable to drain the abscess. CT/Biopsy/Inj or Needle Placement IMPRESSION: 1. Attempted CT directed drainage of a fluid collection using CT image guidance and image documentation as described. 2. Conscious Sedation protocol utilized with independent monitoring Electronically Signed: Watson Meadows MD at 10:53 EST ,
[2022-08-24 08:23] LABS: Platelet Count 417 K/mm3 (150-450)
[2022-08-24 08:50] LABS: International Normalized Ratio 1.1; Partial Thromboplast Time 32.2 Seconds (24.1-36.2); Prothrombin Time (Protime)PT. 13.9 SECONDS (11.7-14.9)
[2022-08-24] MEDS: Midazolam 2 MG/2 ML Syringe IV ×3 (09:47→10:15)
[2022-08-24] MEDS: fentaNYL 100 MCG/2 ML Ampul IV ×4 (09:47→10:48)
[2022-08-24] MEDS: Lidocaine 2% (20 ml mdv) 20 ML Vial INFILT (10:00)
--- NOTE | 2022-08-24 11:20 | NURSING ---
This RN called and spoke with [place] nurse at [facility] women[facility] to inform that abscess was not accessible by percutaneous drain. Pt is aware that office will call for follow up/further management.
--- NOTE | 2022-08-24 19:37 | PCM.HP.BLA ---
History and Physical Date of Admission: 08/24/22 H&P from surgery 08/02/22. HPI: The patient is a 36 year old female presenting for pre-operative visit. She is scheduled for TLH, bilateral salpingectomy, for menorrhagia, intramural uterine fibroids and failed endometrial ablation on 08/02/22. ? Procedure discussed along with risks, benefits and complications.? Other alternatives discussed for management. Consent form signed? Yes.? ? ? PAST MEDICAL HISTORY PAST MEDICAL HISTORY Diagnosis Date ? Diarrhea ? ? Dysmenorrhea ? ? Transient hypertension of , antepartum ? ? Unspecified hemorrhoids without mention of complication ? PAST SURGICAL HISTORY PAST SURGICAL HISTORY Procedure Laterality Date ? CAUTERY CERVIX ELECTRO/THERMAL ? 05/14/2019 ? cauterization of ectocervix due to postcoital bleeding ? HYSTEROSCOPY ? 07/27/2014 ? HYSTEROSCOPY ENDOMETRIAL ABLATION ? 05/14/2019 ? Hysteroscopy w/ [place] ? OVARIAN CYSTECTOMY ? 07/27/2014 ? PAST SURGICAL HISTORY OF ? 12/07 ? SHOULDER SURGERY ? ? ? CURRENT MEDICATIONS Current Outpatient Medications Medication Sig Dispense Refill ? norethindrone (AYGESTIN) 5 mg tablet Take 1 tablet by mouth once daily. start when your next menses is ending 28 tablet 0 ? multivitamin tablet ? ? 0 ? hydroCHLOROthiazide (HYDRODIURIL, ESIDRIX) 12.5 mg tablet Take 12.5 mg by mouth once daily. (Patient not taking: Reported on 06/20/2022) ? ? ? lisinopril (ZESTRIL, PRINIVIL) 5 mg tablet TAKE 1 TABLET BY MOUTH EVERYDAY AT BEDTIME (Patient not taking: Reported on 06/20/2022) ? ? ? sertraline (ZOLOFT) 25 mg tablet TAKE 1 TABLET BY MOUTH EVERYDAY AT BEDTIME (Patient not taking: Reported on 06/20/2022) ? ? ? benzonatate (TESSALON PERLE) 100 mg capsule Take 1-2 capsules tid prn, no more than 6 in 24 hours. (Patient not taking: No sig reported) 30 capsule 0 ? No current facility-administered medications for this visit. ? ? ALLERGIES: Patient has no known allergies. ? PERSONAL HISTORY: SOCIAL HISTORY Social History ? Tobacco Use ? Smoking status: Never ? Smokeless tobacco: Never Vaping Use ? Vaping Use: Never used Substance Use Topics ? Alcohol use: No ? Drug use: No ? ? FAMILY HISTORY: FAMILY HISTORY FAMILY HISTORY Problem Relation Age of Onset ? Hypertension Father ? ? Arthritis Maternal Grandmother ? ? Colon Cancer Maternal Grandfather ? ? Diabetes Paternal Grandmother ? ? Heart Paternal Grandfather ? CO ? Breast Cancer Other ? PGAUNT X 2 ? ? REVIEW OF SYMPTOMS: GENERAL: denies fevers or chills ENDOCRINOLOGY: has not been on steroids Cardiology : denies palpitations or chest pain Respiratory: denies SOB or cough Hematology: denies history of prolonged bleeding or easy bruising or VTE Allergy: Denies history of personal or family history of allergy to anesthesia ? ? PHYSICAL EXAMINATION: ? VITALS: Blood pressure 122/80, pulse 66, resp. rate 16, height 5' 4 (1.626 m), weight 213 lb 11.2 oz (96.9 kg), last menstrual period 07/09/2022. ? GENERAL:? The patient is well nourished, well hydrated in no acute distress.? , The patient is oriented to time, place, and person. NECK: Supple. No lynphadenopathy, normal thyroid, no thyromegaly. LUNGS: Clear to auscultation bilaterally. no wheezes, rhonchi or rales HEART: Regular rate and rhythm, Normal heart sounds, and No murmurs or gallops ? IMPRESSION: intramural uterine fibroids, menorrhagia, failed endometrial ablation ? Pelvic US 12/27/21: Indication Follow-up on uterine fibroids Impression Anteverted fibroid uterus that measures 122 mm x 97 mm x 107 mm. There is a fundal, intramural fibroid as noted below: Fibroid(s): Size 87 mm x 85 mm x 86 mm. Mean 86.0 mm. Vol 332.993 cm?. The central endometrium complex measures 7.4 mm in combined thickness. No abnormal ?blood flow to suggest a polyp or focal endometrial pathology is observed within the endometrial complex. The right ovary is normal appearing. The left ovary is not visualized. There is no free fluid visualized in the peritoneal cavity. Recommendations Fibroid stable in size. Follow up as clinically indicated. Menstrual History LMP on 12/21/2021 Method Transvaginal, 3D ultrasound examination, Color Doppler examination Uterus Uterus: Visualized Uterus position: anteverted Uterus long 122 mm Uterus ap 97 mm Uterus tr 107 mm Uterus Vol 655.7 cm? Endometrial thickness, total 7.4 mm Uterine fibroid D1 87 mm Uterine fibroid D2 85 mm Uterine fibroid D3 86 mm Uterine fibroid mean 86.0 mm Uterine fibroid vol 332.993 cm? Uterine fibroids findings: Anterior Right Ovary Rt ovary: Visualized Rt ovary D1 34 mm Rt ovary D2 30 mm Rt ovary D3 20 mm Rt ovary Vol 10.7 cm? Left Ovary Lt ovary: Not visualized ? ? PLAN: ? The risks/benefits/alternatives and personal involved for the planned TLH, bilateral salpingectomy were reviewed with the patient. Her questions were answered to her satisfaction and she desires to proceed.? Consent was signed.? I reviewed with her postop instructions and expectations. ? Patient underwent total laparoscopic hysterectomy with bilateral salpingectomy on 08/02/2022. Postoperatively the patient was discharged home the same day. She did very well up until 4 days ago she started having worsening pain and feeling hot and cold. Her appetite continues to be normal. She is urinating without difficulty. She is having bowel movements about every other day which is normal for her. She has had a small amount of watery and a small amount of brown-yellow tinged discharge. No bright red bleeding. She was seen in the office on 08/21/2022 and a CAT scan was ordered. This was done on 08/22/2022 and the patient was started on Augmentin and Flagyl on 08/21/2022. CAT scan was read as having pelvic abscesses. The results were known yesterday and I attempted to set the patient up for CT-guided drainage. This was arranged for today. She underwent attempted CT-guided drainage here in interventional radiology. They were unable to reach the abscesses and stated that they thought they looked a little bit smaller. However patient continues to feel hot and cold and her pain is not significantly improved since starting the antibiotics. We discussed this on the phone today and I recommend that she be admitted for IV antibiotics and patient was receptive to this since she is not feeling significantly better. Past medical, surgica,l social and family history are as above without changes Recent medications of included MiraLAX as needed, ibuprofen as needed, acetaminophen as needed, oxycodone about once a day as needed for pain. She is also been on Flagyl and Augmentin. Physical exam: General: Awake, alert no acute distress but does appear uncomfortable Skin is warm dry and intact, normal turgor. No rashes Respiratory: Normal chest wall movements, no wheezing Abdomen: Soft, nondistended, moderate tenderness with mild guarding and no rebound. Pelvic exam performed 08/21/[address] exam reviewed from today. Assessment & Plan Assessment/Plan (1) Postoperative abscess: PLAN: Plan Status post total laparoscopic hysterectomy on 08/02/2022 with noted postoperative pelvic abscess. Check serial CBCs. Monitor vitals. Start IV Zosyn. Attempted CT-guided drainage and it was unsuccessful. We will see how patient responds to IV antibiotics and if is afebrile for more than 24 hours and white blood cells trending down and pain is improving will discharge home with oral antibiotics. Patient is comfortable with this plan
[2022-08-24 20:17] LABS: Absolute Lymphocyte Count 2.09 X10^3/uL (0.83-4.51); Absolute Neutrophil Count 14.2 X10^3/uL (2.0-7.7); Basophil# 0.05 X10^3/uL; Basophil% 0.3 % (0-1); Eosinophil# 0.22 X10^3/uL; Eosinophils% 1.2 % (0-5); Hematocrit 37.5 % (37-47); Hemoglobin 12.3 g/dL (12.0-15.0); Lymphocyte # 2.09 X10^3/ul (0.83-4.51); Lymphocyte % 11.7 % (19-41); Mean Corp Hgb Conc 32.8 g/dL (32-36); Mean Corpuscular Hgb 28.3 pg (27.0-32.0); Mean Corpuscular Volume 86.2 fL (81-99); Mean Platelet Vol. 9.5 fl (6.2-12.0); Monocyte# 1.15 X10^3/uL; Monocyte% 6.4 % (0-10); NRBC Flagged by Analyzer 0 % (0-5); Neutrophil # 14.22 X10^3/uL (2.7-7.7); Neutrophil % 79.7 % (47-70); Platelet Count 405 K/mm3 (150-450); RBC Distribution Width CV 11.9 % (11.6-14.6); Red Blood Count 4.35 M/mm3 (4.2-5.4); White Blood Count 17.9 K/mm3 (4.4-11.0)
[2022-08-24] MEDS: 0.9% Saline Lock 10 ML Syringe IV (20:51)
[2022-08-24] MEDS: Docusate Sodium 100 MG Capsule PO (20:59)
[2022-08-24] MEDS: Ketorolac 30 MG/ML Syringe IV (20:59)
[2022-08-24 21:03] LABS: ALB/GLOB Ratio 0.6 RATIO (0.9-2.4); AST(SGOT) 13 U/L (15-37); Alanine Aminotransfer ALT/SGPT 23 U/L (13-56); Albumin, Serum 2.5 g/dL (3.2-5.0); Alkaline Phosphatase 104 U/L (45-117); Anion Gap 9 (5-15); BUN 16 mg/dL (7-18); BUN/Creat Ratio 19.3 RATIO (10-20); Calcium,Total 8.8 mg/dL (8.5-10.1); Chloride 103 mmol/L (98-107); Creatinine, Serum 0.83 mg/dL (0.55-1.02); EST Glomerular Filtration Rate 82 mL/min (>60); Est Glom Filt Rate - Afr Amer 99 mL/min (>60); Estimated Creatinine Clearance 83.51 ml/min; Globulin 4.4 g/dL (2.2-4.2); Glucose 112 mg/dL (74-106); Potassium 3.9 mmol/L (3.5-5.1); Protein, Total 6.9 g/dL (6.4-8.2); Sodium Level 139 mmol/L (136-145)
[2022-08-25 02:34] VITALS: BP 127/67; PULSE 82; RESP 16; TEMP 37.3; O2SAT 99
[2022-08-25] MEDS: Ketorolac 30 MG/ML Syringe IV ×3 (04:13→21:32)
[2022-08-25 04:39] LABS: Absolute Lymphocyte Count 1.77 X10^3/uL (0.83-4.51); Absolute Neutrophil Count 11.4 X10^3/uL (2.0-7.7); Basophil# 0.05 X10^3/uL; Basophil% 0.3 % (0-1); Eosinophil# 0.29 X10^3/uL; Hemoglobin 12.4 g/dL (12.0-15.0); Lymphocyte # 1.77 X10^3/ul (0.83-4.51); Lymphocyte % 12.2 % (19-41); Mean Corp Hgb Conc 32.6 g/dL (32-36); Mean Corpuscular Hgb 28.2 pg (27.0-32.0); Mean Corpuscular Volume 86.4 fL (81-99); Mean Platelet Vol. 9.2 fl (6.2-12.0); Monocyte# 0.92 X10^3/uL; Monocyte% 6.3 % (0-10); NRBC Flagged by Analyzer 0 % (0-5); Neutrophil # 11.43 X10^3/uL (2.7-7.7); Neutrophil % 78.7 % (47-70); Platelet Count 402 K/mm3 (150-450); RBC Distribution Width CV 11.9 % (11.6-14.6); White Blood Count 14.5 K/mm3 (4.4-11.0)
[2022-08-25 07:37] VITALS: O2SAT 99
--- NOTE | 2022-08-25 09:20 | CASEMGMT ---
HANS RYDER Assessment: Face to Face with pt for initial transition planning/care coordination assessment. RN CM introduced self and role at [facility], pt voices understanding and consents to assessment. Pt is A/O x4 and answers all questions appropriately at this time. Pt sitting in chair in no distress. Care providers, pharmacy, and demographics verified/updated. Admitting Dx:postop hysterectomy pelvic abscess PCP:Kendra Grande NP Specialists:Patrick, HOTEL REGISTRATION CLERK Preferred Pharmacy: [facility] Insurance: [employer] Prescription Benefit: yes LNOK: Yosi Ann, ; Yuko Razo, mother Living Arrangements: Pt lives with and 3 kids in a two story home with 2 steps to enter. Pt reports she is I in ADL's and denies concerns at home. Transportation: Pt drives self and denies concerns with transportation. DME/HHC/SNF: Pt has a walker at home but does not use. Pt denies hx of HHC or SNF stays. Pt states no concerns with going home at time of dc. Pt states no further concerns/needs. CM to follow. Advised pt to ask CM if any further question/concerns/needs arise, voices understanding. Pt Goal: Home Plan: Home
[2022-08-25 10:28] VITALS: BP 132/83; PULSE 78; RESP 18; TEMP 36.8; O2SAT 96
[2022-08-25] MEDS: Acetaminophen 325 MG Tablet 650 MG PO (10:33)
[2022-08-25] MEDS: 0.9% Saline Lock 10 ML Syringe IV ×3 (14:14→21:37)
[2022-08-25 14:21] VITALS: BP 147/91; PULSE 93; RESP 18; TEMP 36.7; O2SAT 98
--- NOTE | 2022-08-25 17:18 | PCM.PN.BLA ---
Progress Note Pain improved since admission. Able to stand and move more comfortbly. Minimal vaginal discharge. Normal BM last night. Appetite fair to good. Urinating without difficulty Physical Exam Const alert, no apparent distress and well nourished General Appearance: cooperative and comfortable GI GI Narrative: abd soft, mild tenderness to deep palpation. No rebound or guarding. No masses. Narrative: normal external genitalia, normal introitus. Cuff intact. Minimal yellow brown mucous discharge, no odor. Fullness in culdesac. Moderatly tender Assessment & Plan Assessment/Plan (1) Postoperative abscess: PLAN: HD#2 pain and WBC improved on IV antibiotics. If worsens consider culdescetesis to try to get sample for culture. However, improving now. Recheck CBC in am. If continues to improve and remains afebrile will likely d/c home on PO antibiotics tomorrow. Plan reveiwed w/ patient and questions answered
[2022-08-25 21:30] VITALS: BP 147/95; PULSE 94; RESP 12; TEMP 37.7; O2SAT 100
[2022-08-25] MEDS: Ondansetron 4 MG/2 ML Vial IV (21:32)
[2022-08-26 03:40] VITALS: BP 113/68; PULSE 76; RESP 16; TEMP 37; O2SAT 98
[2022-08-26 05:28] LABS: Absolute Lymphocyte Count 2.46 X10^3/uL (0.83-4.51); Absolute Neutrophil Count 10.7 X10^3/uL (2.0-7.7); Basophil# 0.05 X10^3/uL; Basophil% 0.3 % (0-1); Eosinophil# 0.53 X10^3/uL; Eosinophils% 3.6 % (0-5); Hematocrit 36.9 % (37-47); Lymphocyte # 2.46 X10^3/ul (0.83-4.51); Lymphocyte % 16.6 % (19-41); Mean Corp Hgb Conc 32.5 g/dL (32-36); Mean Corpuscular Hgb 28.4 pg (27.0-32.0); Mean Corpuscular Volume 87.2 fL (81-99); Mean Platelet Vol. 9.2 fl (6.2-12.0); Monocyte# 1.02 X10^3/uL; Monocyte% 6.9 % (0-10); NRBC Flagged by Analyzer 0 % (0-5); Neutrophil # 10.71 X10^3/uL (2.7-7.7); Neutrophil % 72.1 % (47-70); Platelet Count 371 K/mm3 (150-450); RBC Distribution Width SD 38.5 fl (35.1-43.9); Red Blood Count 4.23 M/mm3 (4.2-5.4); White Blood Count 14.8 K/mm3 (4.4-11.0)
[2022-08-26 08:25] VITALS: O2SAT 98
[2022-08-26 09:00] VITALS: BP 125/71; PULSE 74; RESP 18; TEMP 37.2; O2SAT 98
[2022-08-26] MEDS: Ondansetron 4 MG/2 ML Vial IV (10:13)
[2022-08-26] MEDS: Ketorolac 30 MG/ML Syringe IV (10:13)
[2022-08-26] MEDS: 0.9% Saline Lock 10 ML Syringe IV ×2 (10:20→14:26)
--- NOTE | 2022-08-26 13:37 | PCM.PN.BLA ---
Progress Note Pain improved since admission. [place] sweaty overnight. Tolerating regular diet. Ambulating. Abd- soft, nondistended, minimally tender Assessment & Plan Assessment/Plan (1) Postoperative abscess: PLAN: HD#3 on zosyn. Afebrile. WBC stable. Pain improved. D/c home on PO antibiotics. Call if pain worsens or fever or other concern. patient comfortable w/ plan. 21 min spent on reviewing chart, examining patient, doing notes and discharge and follow up plan F/u in 2-4 days in office
--- NOTE | 2022-08-26 13:40 | DS.PCM_ITS ---
Providers Date of Admission: 08/24/22 Primary Care Physician: BLAZE FerrisC Reason For Visit: POSTOP HYSTEREECTOMY PELVIC ABSCESS Diagnosis Discharge Diagnosis (1) Postoperative abscess: Status: Acute Code(s): T81.49XA - Infection following a procedure, other surgical site, initial encounter Plan: HD#3 on zosyn. Afebrile. WBC stable. Pain improved. D/c home on PO antibiotics. Call if pain worsens or fever or other concern. patient comfortable w/ plan. 21 min spent on reviewing chart, examining patient, doing notes and discharge and follow up plan F/u in 2-4 days in office Medications at Discharge Home Medications multivitamin with folic acid 400 mcg tablet 1 tab PO DAILY supplement 07/20/14 ibuprofen 600 mg tablet 600 mg PO Q6H PRN Pain 20 days #60 TABLETS 08/02/22 oxycodone 5 mg tablet 5 mg PO Q6H PRN PRN severe pain 7 days #12 TABLETS 08/02/22 amoxicillin 875 mg-potassium clavulanate 125 mg tablet 1 tab PO BID antibiotic 08/24/22 metronidazole 500 mg tablet 500 mg PO BID antibiotic 08/24/22 Hospital Course Summary of Care Provided Minutes Spent on Discharge: 21 Hospital Course: 36-year-old female who underwent a total laparoscopic hysterectomy on 08/02/2022 presented for IV antibiotics for pelvic abscess that was unable to be accessed via CT guided drainage. Her pain was not improving on the oral antibiotics. She was admitted for IV antibiotics and her pain improved within 24 hours. She received IV antibiotics on 08/24/2022 until today. She remained afebrile, white blood cell count was down. Pain was improved. Was discharged home to follow-up in the office in 2 to 4 days or as needed. If pain worsens, she has a fever or other complication may need to refer to tertiary care center for attempted CT- guided drainage or ultrasound-guided drainage. Patient is comfortable this plan. Weight / BMI Weight Weight: 97.5 kg Body Mass Index (BMI) 35.7 ABG / Lab / Microbiology Data Result Diagrams: 08/26/22 04:52 08/24/22 19:50 Laboratory: Laboratory Results - last 24 hr 08/26/22 04:52: WBC 14.8 H, RBC 4.23, Hgb 12.0, Hct 36.9 L, MCV 87.2, MCH 28.4, MCHC 32.5, RDW Std Deviation 38.5, RDW Coeff of Amie 12.0, Plt Count 371, MPV 9.2, Immature Gran % (Auto) 0.500, Neut % (Auto) 72.1 H, Lymph % (Auto) 16.6 L, [place] % (Auto) 6.9, Eos % (Auto) 3.6, Baso % (Auto) 0.3, Absolute Neuts (auto) 1 0.7 H, Absolute Lymphs (auto) 2.46, Nucleated RBC % 0 D/C Instructions Discharge Diet: No restrictions Discharge Activity: May Drive Return to work on: 09/12/22 May shower in (days): 0 May resume sexual activity in: 4-6 weeks Lifting Restricted to (Lbs): 15 Lifting Restrictions: 3 weeks Call your doctor if your incision/area has: Sudden Increased Bleeding, Increased Pain/ Swelling, Foul Smelling Discharge and Swelling at the incision site Call your doctor if you observe: Fever of 101 or Higher and Using more than 1 pad per hour Please Follow Up With: Kalyn Nguyen MD When: 2-4 days or as needed Meaningful Use Info Meaningful Use Diagnoses (Choose all that apply): None applicable Discharge Plan Admission Admit Date/Time: 08/24/22 18:45 Primary Reason for Your Visit: Postop pelvic abscess Attending Provider: Kalyn Nguyen Primary Care Provider: Kendra Grande NP Consulting Providers: [place] Discharge Orders/Prescriptions Prescriptions: Continued multivitamin with folic acid 1 TABLET tablet 1 tab PO DAILY ibuprofen 600 MG tablet 600 mg PO Q6H PRN (Reason: Pain) 20 Days Qty: 60 0RF oxycodone 5 MG tablet 5 mg PO Q6H PRN PRN (Reason: severe pain) 7 Days Qty: 12 0RF metronidazole 500 mg Tablet 500 mg PO BID amoxicillin-pot clavulanate 875-125 mg Tablet 1 tab PO BID Referrals / Follow Up: Kendra Grande NP, [employer] [Primary Care Provider] - Disposition Disposition (needs filled in before D/C Order can be placed): Home, Self Care
[2022-08-26 14:36] VITALS: BP 129/83; PULSE 74; RESP 18; TEMP 36.8; O2SAT 98
== END 2022-08-26 15:30 | disposition home or self-care (01) | DRG 863 ==
LOC: MS3 19:41
PROVIDERS: Radiology Diagnostic Radiology; Admitting Provider Obstetrics & Gynecology; PCP Nurse Practitioner Family; Referring Provider Obstetrics & Gynecology; Visit Provider Obstetrics & Gynecology
DX: T81.43XA Infection following a procedure, organ and space surgical site, initial encounter (principal); N73.9 Female pelvic inflammatory disease, unspecified; Y83.8 Other surgical procedures as the cause of abnormal reaction of the patient, or of later complication, without mention of misadventure at the time of the procedure; Z90.710 Acquired absence of both cervix and uterus; Z53.8 Procedure and treatment not carried out for other reasons
CPT/HCPCS: 36415; 77012; 80053; 85025; 85049; 85610; 85730; 99156; 99157; J7050; A4216; J2405

== ENCOUNTER 2022-09-17 13:59 | Inpatient (IN) | payer OTHER, SELFPAY ==
[2022-09-17] VITALS (19 sets, daily range): BP systolic 91–122; BP diastolic 51–96; PULSE 66–140; RESP 14–28; TEMP 34.8–37.2; O2SAT 96–100; BMI 35.6; BMI 37.8
--- NOTE | 2022-09-17 09:29 | HP.PCM_ITS ---
History and Physical Date of Admission: 09/17/22 PROBLEM: Brielle Ann presents for postop visit. postop LAVH, had pelvic abscess. Feels somewhat better but still w/ pain and fatigue. Takes ibuprofen occasionally. 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 Had repeat CT this week. Denies fevers/chills/CP/SOB SUBJECTIVE/INTERVAL HISTORY: Brielle Ann . No shortness of breath, cough, or chest pain. No incisional redness, swelling, or drainage. Vaginal discharge is mucous, sometimes small amount, no malodor.Patient reports that her appetite is fair. BM and urination normal. ? OBJECTIVE: ? LUNGS: Clear to auscultation bilaterally. ? HEART: Regular rate and rhythm, no murmurs. ? ABDOMEN: soft, nondistended, mildly tender, no hernia, rebound or guarding ? PELVIC: normal external genitalia, normal vagina, cuff intact, healing, moderate mucous discharge. No malodor, some sutures still present . ? ASSESSMENT: postop LAVH, pelvic abscess, still w/ signif. pain ? PLAN: d/w her CT scan and after appointment that I contacted Dr. Avendaño and likely this will not resolve with antibiotics. Recommend diagnostic laparoscopy and evacuation of abscess, cultures. R/B/A/P reviewed over the phone after appointemnt., questions answered, desires to proceed, sign consent that day. ?See previous H&P notes from nd 08/24/22 from surgery and readmission for postop abscess.
[2022-09-17] MEDS: Lactated Ringers 1,000 ML 15 ML IV (10:40)
[2022-09-17] MEDS: Acetaminophen 500 MG Tablet 1000 MG PO (10:43)
[2022-09-17] MEDS: Ketorolac 30 MG/ML Syringe IV (10:44)
[2022-09-17 10:47] LABS: Hematocrit 40.9 % (37-47); Hemoglobin 13.6 g/dL (12.0-15.0); Mean Corp Hgb Conc 33.3 g/dL (32-36); Mean Corpuscular Hgb 28.5 pg (27.0-32.0); Mean Corpuscular Volume 85.7 fL (81-99); Mean Platelet Vol. 9.3 fl (6.2-12.0); Platelet Count 299 K/mm3 (150-450); RBC Distribution Width CV 12.7 % (11.6-14.6); RBC Distribution Width SD 39.3 fl (35.1-43.9); Red Blood Count 4.77 M/mm3 (4.2-5.4); White Blood Count 7.5 K/mm3 (4.4-11.0)
[2022-09-17 11:06] LABS: ALB/GLOB Ratio 0.8 RATIO (0.9-2.4); AST(SGOT) 16 U/L (15-37); Alanine Aminotransfer ALT/SGPT 30 U/L (13-56); Albumin, Serum 3.2 g/dL (3.2-5.0); Alkaline Phosphatase 92 U/L (45-117); Anion Gap 5 (5-15); BUN 16 mg/dL (7-18); BUN/Creat Ratio 17.2 RATIO (10-20); Calcium,Total 8.8 mg/dL (8.5-10.1); Chloride 106 mmol/L (98-107); Creatinine, Serum 0.93 mg/dL (0.55-1.02); EST Glomerular Filtration Rate 72 mL/min (>60); Est Glom Filt Rate - Afr Amer 87 mL/min (>60); Estimated Creatinine Clearance 74.53 ml/min; Globulin 4.1 g/dL (2.2-4.2); Glucose 88 mg/dL (74-106); Potassium 3.7 mmol/L (3.5-5.1); Protein, Total 7.3 g/dL (6.4-8.2); Sodium Level 138 mmol/L (136-145)
[2022-09-17] MEDS: Cefazolin 2 GM in 0.9% Normal Saline 100 ML IV (11:36)
--- NOTE | 2022-09-17 11:49 | DCINST_ITS ---
Discharge Instructions Diet Discharge Diet: No restrictions Activity Discharge Activity: May Drive (as tolerated), May Shower (09/18/22) and May Take a Tub Bath (in 1 weeks) May resume sexual activity in: 1 week Dressing / Incision Call your doctor if your incision/area has: Continuous Slow Oozing, Increased Pain/ Swelling and Foul Smelling Discharge Call your doctor if you observe: Fever of 101 or Higher and Using more than 1 pad per hour Remove Dressing in: do not remove dressing (the skin glue can get wait, wait for it to fall off) Cleanse incision/area with: Soap & Water Follow Up Care Please Follow Up With: Kalyn Nguyen MD When: 1-2 weeks or as needed. [phone] Test Results: Test results from this visit will be discussed in further detail at your follow- up appointment, if applicable. Discharge Plan Admission Attending Provider: Kalyn Nguyen Primary Care Provider: Kendra Grande NP Discharge Orders/Prescriptions Prescriptions: No Action multivitamin with folic acid 1 TABLET tablet 1 tab PO DAILY Probiotic 5 billion cell Capsule, Sprinkle 1 cap PO DAILY Referrals / Follow Up: Kendra Grande NP, SENIOR SOFTWARE DEVELOPMENT ENGINEER-C [Primary Care Provider] - Disposition Disposition (needs filled in before D/C Order can be placed): Home, Self Care
[2022-09-17] MEDS: Bupivacaine 0.25% 30 ML Vial (12:35)
--- NOTE | 2022-09-17 12:35 | OP.PCM_ITS ---
Problems Associated Problem List Diagnoses (1) Postoperative abscess: Report of Operation Date of Procedure: 09/17/22 Pre-Operative Diagnosis: pelvic abscess- not resolving with conservative management Post-Operative Diagnosis: same Surgery/Procedure Performed:: Laparoscopic evacuation of pelvic abscess and lysis of some adhesions Description of Surgical Findings:: small bowel adhered to vaginal cuff, simple left ovarian cyst, complex left right ovarian cyst adhered to abscess of posterior cul de sac filled. Abscess filled with necrotic debris and purulent material Surgeon: Kalyn Nguyen nipping machine operator: Lux Beasley nipping machine operator: Alyssa Alonso Ms3 Type of Anesthesia: General Anesthesiologist: Gogo Dorado Special Medications: none Specimen's removed: anaerobic and aerobic cultures of abscess Drains: none Estimated Blood Loss (mL): 10 Fluids Replaced: 900 Description of Procedure: The patient was taken to the operating room where she was prepped and draped in the dorsolithotomy position. A sponge stick was placed in the vagina. Attention was turned to the abdomen. All port sites were infiltrated with 0.25% Marcaine before skin incisions were made. A 5 mm intraumbilical incision was made. The anterior abdominal wall was tented up with 2 towel clamps while a 5 mm blade less trocar and sleeve were directly inserted using the Visiport. Intraperitoneal placement was confirmed with the laparoscope. The pneumoperitoneum was created and the underlying abdominal contents were intact. The patient was placed in Trendelenburg. 5mm right and left lower quadrant ports were placed under direct visualization lateral to the inferior epigastric vessels. The bowel was swept away and the above findings were noted. There were some filmy adhesions of the omentum to the pelvic floor. These were taken off with blunt and sharp dissection. There were some adhesions of the small bowel to the area of interest. These were taken down with blunt and sharp dissection. The serosa was examined and no defects were made in the serosa the left ovary was freed up at the right ovary was very adherent to the pelvic sidewall. The was an ovarian cyst and the pelvic abscess was felt to be directly over the cul-de-sac. After ensuring the colon and bowel were not in the area of interest, the complex right ovarian cyst and the abscess wall were incised with scissors with cautery. The fluid contents were drained from both. The purulent material in the abscess was noted in the defect and the abscess wall was stretched bluntly. Some of the material was removed and sent for anaerobic and aerobic cultures. We then used 2 L of fluid to extensively irrigate the abscess in the pelvic structures. Bovie cauterization was made around the ovarian cyst to obtain hemostasis. Some Bridget was placed over the operative areas. Hemostasis was noted. The pneumoperitoneum was released. The skin incisions were closed with Monocryl suture in a subcuticular fashion and skin glue by the SPEECH THERAPIST EARLY INTERVENTION with me present in the operative suite. The vaginal instruments were removed and the vaginal sweep was completed by me. The procedure was performed by me with assistance other than as dictated above. All sponge and needle counts were correct and the patient was taken to the recovery room in stable condition. Grafts/Implants Used: none Procedure Start Time: 11:56 Procedure Stop Time: 12:39 Complications none Admit VTE Documentation VTE Present on Admission: No VTE Mechan Device Prophylaxis: SCD's VTE Pharm Prophylaxis ordered?: No Reason prophylaxis not ordered:: Procedure Not Indicated
--- NOTE | 2022-09-17 13:00 | RAD_ITS ---
STUDY: X-RAY CHEST REASON FOR EXAM: Female, 36 years old. DECREASED O2 AND CHECKING ETT PLACEMENT TECHNIQUE: Single AP portable view of the chest. COMPARISON: None. FINDINGS: The endotracheal tube terminates 2.85 cm above the abdias. No consolidation or pneumothorax is seen. The lungs are clear and expanded. There is no demonstrated pleural abnormality. Normal size heart. Normal mediastinum and duglas. Normal visualized pulmonary arteries. Normal visualized aortic arch and descending thoracic aorta. Normal visualized thoracic spine. Normal visualized ribs, clavicles, and shoulders. There is no demonstrated abnormality of the visualized soft tissue structures of the upper abdomen. RAD/Chest 1 View (Portable) IMPRESSION: 1. The endotracheal tube terminates 2.85 cm above the abdias. No consolidation or pneumothorax is seen. Electronically Signed: Iker Briones MD at 13:51 EDT ,
[2022-09-17 13:25] LABS: Base Excess -6 mmol/L (-2 to +2); Bicarbonate 21.5 mmol/L (22-26); Blood Gas Specimen Type ART; PO2 58 mmHG (75-100); SO2 84 % (95-99); Total Carbon Dioxide 23 mmol/L; pCO2 51.9 mmHg (35-45); pH 7.23 (7.35-7.45)
[2022-09-17] MEDS: Propofol 10MG/Ml 1,000 MG/100 ML Bottle 5.8 MG CONT INF (14:00)
--- NOTE | 2022-09-17 14:17 | CON.PCM.CC_ITS ---
Assessment & Plan Assessment/Plan (1) Postoperative abscess: (2) Respiratory failure with hypercapnia: PLAN: Plan RECOMMENDATIONS: 1. Repeat chest x-ray to confirm tube position 2. Initiate fentanyl and propofol 3. Continue mechanical ventilation overnight. ABG in 1 hour 4. Sepsis protocol 5. Wean oxygen as tolerated 6. Spontaneous breathing and awakening trials per protocol IMPRESSIONS: 1. Acute combined respiratory failure Unclear etiology at this time. Patient was under anesthesia, so retention of anesthesia meds would be a consideration. Chest x-ray following repeat intubation did show some signs of possible right upper lobe atelectasis. We will repeat chest x-ray. Oxygenation appears to be much improved at this time. No aspiration event was described. Will obtain an nasal MRSA swab. If posi tive, vancomycin will need to be started. Otherwise, will use bronchodilators as needed and Zosyn for coverage. Patient does not have any history of previous respiratory difficulties and is not a smoker, so we will not schedule bronchodilators for now. Patient should have a spontaneous breathing and awakening trials per protocol. 2. Hypotension Unclear etiology. Patient did receive some medications that could cause hypotension. Other possible etiology is bacteremia secondary to drainage of pelvic abscess. Will broaden antibiotics as patient has been on ciprofloxacin previously to Zosyn. Patient does not have any history of MDRO, so and less nasal MRSA is positive, we will hold off on vancomycin for now. Patient's blood pressure does appear to be somewhat improved, but will treat with fluid boluses. Lactate has been ordered, along with panculture. 3. Pelvic abscess following hysterectomy Patient reportedly tolerated the procedure well. There does not appear to be a reason to think postoperative hemorrhage as an etiology. Repeat CBC has been ordered, but we will hold on any transfusions at this time. Labs prior to procedure were within normal limits. TIME: 37 minutes critical care time spent addressing patient's respiratory failure, hypotension, review of all data and collaboration with care team HPI Consult Data Date of Consult: 09/17/22 HPI Narrative Reason for Consultation: Respiratory failure HPI Narrative: ABRAHAM PIERRE is a 36 F, with past medical history listed below, who presents to [facility] on 09[facility]17[facility]22 secondary to a history of a pelvic abscess following LAVH. Patient had been treated with ciprofloxacin for 4 weeks and had a repeat CT scan showing only mild improvement, so it was determined the patient will need to go to the OR for evacuation. Patient reportedly was of her usual health prior to surgery. At approximately 1 PM, I was called emergently down to the OR for an evaluation. Patient reportedly was hypotensive, hypoxic and tachycardic. Chest x-ray had been obtained after the patient required repeat intubation. This was evaluated by myself during the phone call and it was requested that the ET tube be moved back 2 cm. On my arrival in the OR, patient saturations were improving, but she remained with a map around 60-65 and tachycardic in the 130s. Given patient's acute decompensation, the decision was made to transfer the patient to the intensive care unit. Did discuss with Dr. Nguyen about the patient's history. Patient reportedly does not have a history of obstructive lung disease and had a complication following vaginal hysterectomy. Patient has been on ciprofloxacin for 4 weeks as previous cultures had shown multiple organisms that were sensitive. Patient did receive 2 g of Ancef prior to the procedure. Patient does not have a history of a hypercoagulable state, but is obese, recent surgery and decreased mobility. Dr. Nguyen was unaware of any previous MDRO infections. Patient is not on any inhalers at baseline. Unable to obtain review of systems as patient is currently intubated. [facility] Medical History Elevated blood pressure reading in office without diagnosis of hypertension History of IBS History of ovarian cyst Hypersomnolence IBS (irritable bowel syndrome) MRSA infection Non-smoker Home Medications multivitamin with folic acid 400 mcg tablet 1 tab PO DAILY supplement 07/20/14 [History Last Taken 09/16/22] Lactobacil.acidophilus-Bifido.animalis 5 billion cell sprinkle capsule (Probiotic) 1 cap PO DAILY 09/14/22 [History Last Taken 09/16/22] Allergy/AdvReac Type Severity Reaction Status Date / Time No Known Allergies Allergy Verified 09/17/22 10:38 Family History Grandmother Arthritis Cancer skin Parkinson disease Grandfather Colon cancer Myocardial infarction, Onset Age: 66 Father Hypertension Sister Arthritis Surgical History History of hysterectomy History of removal of ovarian cyst History of shoulder surgery history of uterine ablasion History of vaginal delivery Social History Smoking Status: Never smoker alcohol intake: current alcohol intake frequency: holidays/special occasions only Alcohol type: wine substance use type: does not use what type of physical activity do you participate in: running and weight training frequency: 3-4 times per week ROS Review of Systems ROS Unobtainable: due to endotracheal tube Physical Exam Const Constitutional Narrative: Intubated and sedated. Some spontaneous movement of all extremities noted. RASS -2. HEENT normocephalic and head/scalp atraumatic Eyes PERRL, EOMs intact bilaterally, conjunctivae normal and no scleral icterus Neck no lymphadenopathy and supple Chest inspection of chest normal Resp Auscultation: clear to auscultation bilaterally; Negative for rales, rhonchi or wheezes Cardio regular rhythm, S1 normal heart sound, S2 normal heart sound, no murmurs, no rub and no gallops Rate: tachycardic GI GI Narrative: 3 small incisions noted that have been Dermabond together. No ecchymosis or induration noted. Extremity no clubbing, cyanosis or edema Skin no rashes or lesions noted Skin Narrative: Incision sites are clean, dry and intact Neuro no focal motor deficits Psych Mood & Affect: flat affect Medical Records Data Attestation: I reviewed the patient's medical records Lab / Micro Data Attestation: I reviewed the patient's lab results. Result Diagrams: 09/17/22 10:30 09/17/22 10:30 Labs: Laboratory Results - last 24 hr 09/17/22 10:30: WBC 7.5, RBC 4.77, Hgb 13.6, Hct 40.9, MCV 85.7, MCH 28.5, MCHC 33.3, RDW Std Deviation 39.3, RDW Coeff of Amie 12.7, Plt Count 299, MPV 9.3 09/17/22 10:30: Sodium 138, Potassium 3.7, Chloride 106, Carbon Dioxide 27.0, Anion Gap 5, BUN 16, Creatinine 0.93, Estim Creat Clear Calc 74.53, Est GFR (MDRD) Af Amer 87, Est GFR (MDRD) Non-Af 72, BUN/Creatinine Ratio 17.2, Glucose 88, Calcium 8.8, Total Bilirubin 0.60, AST 16, ALT 30, Alkaline Phosphatase 92, Total Protein 7.3, Albumin 3.2, Globulin 4.1, Albumin/Globulin Ratio 0.8 L 09/17/22 10:30: Blood Type O POSITIVE, Antibody Screen NEGATIVE ABG Data ABG results: ABG 09/17/22 13:12 Specimen Type ART pH 7.23 L Bicarbonate Actual 21.5 L Total CO2 23 Base Excess -6 L O2 Saturation 84 L ABG pCO2 51.9 H ABG pO2 58 L Attestation: I personally reviewed and interpreted this ABG as follows: (Acute respiratory acidosis with increased AA gradient) Rhythm Strip Rhythm Strip: Sinus Tach Rate: 132 Ectopy: None Radiology Impression Chest X-Ray 09/17/22 13:00 IMPRESSION: 1. The endotracheal tube terminates 2.85 cm above the abdias. No consolidation or pneumothorax is seen. Electronically Signed: Iker Briones MD at 13:51 EDT Reading Location ID and State: [facility] / [place] , Service support , Charges/Coding Procedures Hospitalists Procedures: [id number] Critial Care 1st Hr
--- NOTE | 2022-09-17 14:22 | RAD_ITS ---
STUDY: X-RAY CHEST REASON FOR EXAM: Female, 36 years old. Intubation. ET tube placement TECHNIQUE: Single AP portable view of the chest. COMPARISON: September 17, 2022 at 1:02 PM FINDINGS: 1. Slight interval retraction of the endotracheal tube now terminating 5.11 cm above the abdias 2. A new feeding tube is present terminating in the fundus of the stomach 3. No pneumothorax or consolidation is seen 4. No visualized pleural effusions 5. Both lungs are clear 6. Normal heart size 7. Stable mediastinum and osseous structures. 8. There is no demonstrated abnormality of the visualized soft tissue structures of the upper abdomen. RAD/Chest 1 View (Portable) IMPRESSION: Supporting tubes as above. Electronically Signed: Iker Briones MD at 15:12 EDT ,
[2022-09-17] MEDS: 0.9% Normal Saline 1,000 ML 999 ML IV ×3 (15:00→16:53)
[2022-09-17 15:07] LABS: Absolute Neutrophil Count 26.6 X10^3/uL (2.0-7.7); Basophil# 0.07 X10^3/uL; Basophil% 0.2 % (0-1); Eosinophil# 0.07 X10^3/uL; Eosinophils% 0.2 % (0-5); Hematocrit 49.1 % (37-47); Hemoglobin 16.2 g/dL (12.0-15.0); Lymphocyte % 6.2 % (19-41); Mean Corpuscular Hgb 28.5 pg (27.0-32.0); Mean Corpuscular Volume 86.3 fL (81-99); Mean Platelet Vol. 9.5 fl (6.2-12.0); Monocyte# 0.21 X10^3/uL; Monocyte% 0.7 % (0-10); NRBC Flagged by Analyzer 0 % (0-5); POSITIVE DIFFERENTIAL YES; Platelet Count 380 K/mm3 (150-450); RBC Distribution Width CV 12.8 % (11.6-14.6); RBC Distribution Width SD 39.7 fl (35.1-43.9); Red Blood Count 5.69 M/mm3 (4.2-5.4)
[2022-09-17 15:11] LABS: Differential Indicated SCAN CRITERIA MET
[2022-09-17 15:21] LABS: ALB/GLOB Ratio 0.8 RATIO (0.9-2.4); AST(SGOT) 21 U/L (15-37); Alanine Aminotransfer ALT/SGPT 30 U/L (13-56); Albumin, Serum 2.9 g/dL (3.2-5.0); Alkaline Phosphatase 91 U/L (45-117); Anion Gap 8 (5-15); BUN 16 mg/dL (7-18); BUN/Creat Ratio 14.4 RATIO (10-20); Calcium,Total 8.3 mg/dL (8.5-10.1); Chloride 106 mmol/L (98-107); Creatinine, Serum 1.11 mg/dL (0.55-1.02); EST Glomerular Filtration Rate 59 mL/min (>60); Est Glom Filt Rate - Afr Amer 71 mL/min (>60); Estimated Creatinine Clearance 62.44 ml/min; Globulin 3.7 g/dL (2.2-4.2); Glucose 206 mg/dL (74-106); Magnesium 1.7 mg/dL (1.6-2.6); Potassium 3.5 mmol/L (3.5-5.1); Protein, Total 6.6 g/dL (6.4-8.2); Sodium Level 139 mmol/L (136-145)
[2022-09-17] MEDS: Lactated Ringers 1,000 ML 75 ML IV (15:25)
[2022-09-17] MEDS: Heparin Injection (Vial) 5,000 UNIT/ML VIAL 5000 UNIT SC (15:39)
[2022-09-17 15:40] LABS: Lactic Acid 2.9 mmol/L (0.4-1.9)
[2022-09-17 15:41] LABS: Allen Test Negative; Base Excess -3 mmol/L (-2 to +2); Bicarbonate 24.1 mmol/L (22-26); Blood Gas Specimen Type ART; FI02 30; Mode AC; O2 Delivery Device Adult Vent; PEEP 5; PO2 84 mmHG (75-100); RR 16; SITE L Radial; SO2 94 % (95-99); Total Carbon Dioxide 26 mmol/L; Vt 450; pCO2 52.6 mmHg (35-45); pH 7.27 (7.35-7.45)
[2022-09-17 15:52] LABS: Differential Comment SCANNED
[2022-09-17 15:53] LABS: Platelet Estimate ADEQUATE (ADEQ)
[2022-09-17] MEDS: Propofol 10MG/Ml 1,000 MG/100 ML Bottle 17.5 MG CONT INF ×2 (16:43→21:54)
[2022-09-17 18:38] LABS: Lactic Acid 1.4 mmol/L (0.4-1.9)
[2022-09-17 19:02] LABS: Reflex Lactate? Y
[2022-09-17 20:48] LABS: Lactic Acid 2.6 mmol/L (0.4-1.9)
[2022-09-17] MEDS: Famotidine 20 MG Tablet GT (22:35)
[2022-09-18] VITALS (23 sets, daily range): BP systolic 94–136; BP diastolic 48–89; PULSE 67–119; RESP 9–22; TEMP 36.2–37.6; O2SAT 96–100; BMI 38.0
[2022-09-18] MEDS: Propofol 10MG/Ml 1,000 MG/100 ML Bottle 17.5 MG CONT INF (02:33)
[2022-09-18] MEDS: Lactated Ringers 1,000 ML 75 ML IV (03:46)
[2022-09-18 05:29] LABS: Absolute Neutrophil Count 18.3 X10^3/uL (2.0-7.7); Basophil# 0.05 X10^3/uL; Basophil% 0.2 % (0-1); Eosinophil# 0.06 X10^3/uL; Eosinophils% 0.3 % (0-5); Hematocrit 37.5 % (37-47); Hemoglobin 12.6 g/dL (12.0-15.0); Lymphocyte % 5.8 % (19-41); Mean Corp Hgb Conc 33.6 g/dL (32-36); Mean Corpuscular Hgb 28.6 pg (27.0-32.0); Mean Corpuscular Volume 85.2 fL (81-99); Mean Platelet Vol. 9.2 fl (6.2-12.0); Monocyte# 0.88 X10^3/uL; Monocyte% 4.3 % (0-10); NRBC Flagged by Analyzer 0 % (0-5); Neutrophil # 18.29 X10^3/uL (2.7-7.7); Platelet Count 301 K/mm3 (150-450); RBC Distribution Width CV 12.9 % (11.6-14.6); RBC Distribution Width SD 39.6 fl (35.1-43.9); White Blood Count 20.6 K/mm3 (4.4-11.0)
[2022-09-18 05:41] LABS: Anion Gap 9 (5-15); BUN 17 mg/dL (7-18); BUN/Creat Ratio 15.3 RATIO (10-20); Calcium,Total 7.9 mg/dL (8.5-10.1); Chloride 110 mmol/L (98-107); Creatinine, Serum 1.11 mg/dL (0.55-1.02); EST Glomerular Filtration Rate 59 mL/min (>60); Est Glom Filt Rate - Afr Amer 71 mL/min (>60); Estimated Creatinine Clearance 59.92 ml/min; Glucose 136 mg/dL (74-106); Potassium 4.2 mmol/L (3.5-5.1); Sodium Level 140 mmol/L (136-145)
--- NOTE | 2022-09-18 07:07 | PCM.PN.INT ---
Assessment & Plan Assessment/Plan (1) Postoperative abscess: (2) Respiratory failure with hypercapnia: PLAN: Plan RECOMMENDATIONS: 1. Proceed with extubation 2. Transition to p.o. pain control once passes bedside swallow evaluation 3. Continue Zosyn pending culture data 4. Encourage incentive spirometer and out of bed as tolerated 5. Wean oxygen as tolerated 6. Monitor daily blood counts IMPRESSIONS: 1. Acute combined respiratory failure Unclear etiology at this time. Patient was under anesthesia, so retention of anesthesia meds would be a consideration. No aspiration event was described. Will obtain an nasal MRSA swab. We will continue patient on Zosyn for now pending culture data. Repeat chest x-ray did not show any significant infiltrates. Patient does not have any history of previous respiratory difficulties and is not a smoker, so we will not schedule bronchodilators for now. We will proceed with extubation 2. Hypotension Resolved. Patient did receive some medications that could cause hypotension. Other possible etiology is bacteremia secondary to drainage of pelvic abscess. Will broaden antibiotics as patient has been on ciprofloxacin previously to Zosyn. Patient does not have any history of MDRO, so and less nasal MRSA is positive, we will hold off on vancomycin for now. Patient does have a significant leukocytosis, but no signs of endorgan damage except for slightly elevated lactate of 2.6. 3. Pelvic abscess following hysterectomy Patient reportedly tolerated the procedure well. There does not appear to be a reason to think postoperative hemorrhage as an etiology. Repeat CBC has been ordered, but we will hold on any transfusions at this time. Labs prior to procedure were within normal limits. TIME: 32 minutes critical care time spent addressing patient's respiratory failure, hypotension, review of all data and collaboration with care team Subjective Subjective Patient did well overnight. No additional fluid boluses or pressors have been required. Patient currently on spontaneous awakening and breathing trial and doing well. Patient able to answer questions despite 100 mcg of fentanyl drip. Patient did have some bloody secretions noted out of OG overnight, but heparin subcu was held with improvement. Objective Data Objective Data Vital Signs: Vital Signs Temp Pulse Resp BP Pulse Ox O2 Del Method FiO2 37.6 C H 93 9 L 117/67 97 Mechanical Ventilator 25 09/18/22 06:00 09/18/22 06:00 09/18/22 06:00 09/18/22 06:00 09/18/22 06:00 09/18/22 06:00 09/18/22 02:48 Oxygen Delivery Method Mechanical Ventilator Weight: 103.6 kg Body Mass Index (BMI) 38.0 Intake & Output: Intake and Output for Last 24 Hours 09/16/22 09/17/22 09/18/22 23:59 23:59 23:59 Intake Total 3199.74 / 3199.74 1186.01 / 1186.01 Output Total 285 / 360 400 / 400 Balance 2914.74 / 2839.74 786.01 / 786.01 Lab / Micro Data Attestation: I reviewed the patient's lab results. Result Diagrams: 09/18/22 05:15 09/18/22 05:15 Labs: Laboratory Results - last 24 hr 09/17/22 10:30: WBC 7.5, RBC 4.77, Hgb 13.6, Hct 40.9, MCV 85.7, MCH 28.5, MCHC 33.3, RDW Std Deviation 39.3, RDW Coeff of Amie 12.7, Plt Count 299, MPV 9.3 09/17/22 10:30: Sodium 138, Potassium 3.7, Chloride 106, Carbon Dioxide 27.0, Anion Gap 5, BUN 16, Creatinine 0.93, Estim Creat Clear Calc 74.53, Est GFR (MDRD) Af Amer 87, Est GFR (MDRD) Non-Af 72, BUN/Creatinine Ratio 17.2, Glucose 88, Calcium 8.8, Total Bilirubin 0.60, AST 16, ALT 30, Alkaline Phosphatase 92, Total Protein 7.3, Albumin 3.2, Globulin 4.1, Albumin/Globulin Ratio 0.8 L 09/17/22 10:30: Blood Type O POSITIVE, Antibody Screen NEGATIVE 09/17/22 14:40: Sodium 139, Potassium 3.5, Chloride 106, Carbon Dioxide 25.0, Anion Gap 8, BUN 16, Creatinine 1.11 H, Estim Creat Clear Calc 62.44, Est GFR (MDRD) Af Amer 71, Est GFR (MDRD) Non-Af 59 L, BUN/Creatinine Ratio 14.4, Glucose 206 H, Calcium 8.3 L, Magnesium 1.7, Total Bilirubin 0.40, AST 21, ALT 30, Alkaline Phosphatase 91, Total Protein 6.6, Albumin 2.9 L, Globulin 3.7, Albumin/Globulin Ratio 0.8 L 09/17/22 14:40: Lactic Acid 2.9 H* 09/17/22 14:40: WBC 29.0 H, RBC 5.69 H, Hgb 16.2 H, Hct 49.1 H, MCV 86.3, MCH 28.5, MCHC 33.0, RDW Std Deviation 39.7, RDW Coeff of Amie 12.8, Plt Count 380, MPV 9.5, Immature Gran % (Auto) 0.700, Neut % (Auto) 92.0 H, Lymph % (Auto) 6.2 L, [place] % (Auto) 0.7, Eos % (Auto) 0.2, Baso % (Auto) 0.2, Absolute Neuts (auto) 26.6 H, Absolute Lymphs (auto) 1.80, Nucleated RBC % 0, Differential Comment SCANNED, Platelet Estimate ADEQUATE 09/17/22 18:05: Lactic Acid 1.4 09/17/22 19:50: Lactic Acid 2.6 H* 09/18/22 05:15: WBC 20.6 H, RBC 4.40, Hgb 12.6, Hct 37.5, MCV 85.2, MCH 28.6, MCHC 33.6, RDW Std Deviation 39.6, RDW Coeff of Amie 12.9, Plt Count 301, MPV 9.2, Immature Gran % (Auto) 0.400, Neut % (Auto) 89.0 H, Lymph % (Auto) 5.8 L, [place] % (Auto) 4.3, Eos % (Auto) 0.3, Baso % (Auto) 0.2, Absolute Neuts (auto) 18.3 H, Absolute Lymphs (auto) 1.20, Nucleated RBC % 0 09/18/22 05:15: Sodium 140, Potassium 4.2, Chloride 110 H, Carbon Dioxide 21.0, Anion Gap 9, BUN 17, Creatinine 1.11 H, Estim Creat Clear Calc 59.92, Est GFR (MDRD) Af Amer 71, Est GFR (MDRD) Non-Af 59 L, BUN/Creatinine Ratio 15.3, Glucose 136 H, Calcium 7.9 L ABG Data ABG results: ABG 09/17/22 09/17/22 13:12 15:35 Specimen Type ART ART Sample Site L Radial pH 7.23 L 7.27 L Bicarbonate Actual 21.5 L 24.1 Total CO2 23 26 Base Excess -6 L -3 L O2 Saturation 84 L 94 L O2 % 30 ABG pCO2 51.9 H 52.6 H ABG pO2 58 L 84 Hay Test Negative Respiration Rate 16 O2 Delivery Device Adult Vent Vent Mode AC Tidal Volume 450 POC PEEP 5 Radiography Diagnostic Testing: Radiology Impression Chest X-Ray 09/17/22 13:00 IMPRESSION: 1. The endotracheal tube terminates 2.85 cm above the abdias. No consolidation or pneumothorax is seen. Electronically Signed: Iker Briones MD at 13:51 EDT Reading Location ID and State: [facility] / [place] , Service support , Chest X-Ray 09/17/22 14:22 IMPRESSION: Supporting tubes as above. Electronically Signed: Iker Briones MD at 15:12 EDT Reading Location ID and State: [facility] / [place] , Service support , Rhythm Strip Rhythm Strip: Sinus Tach Rate: 103 Ectopy: None Physical Exam Const Constitutional Narrative: Intubated and sedated. Some spontaneous movement of all extremities noted. RASS 0. Following commands General Appearance: cooperative and well developed HEENT normocephalic and head/scalp atraumatic Eyes PERRL, EOMs intact bilaterally, conjunctivae normal and no scleral icterus Neck no lymphadenopathy and supple Chest inspection of chest normal Resp Auscultation: clear to auscultation bilaterally; Negative for rales, rhonchi or wheezes Cardio regular rhythm, S1 normal heart sound, S2 normal heart sound, no murmurs, no rub and no gallops Rate: tachycardic GI GI Narrative: 3 small incisions noted that have been Dermabond together. No ecchymosis or induration noted. Extremity no clubbing, cyanosis or edema Skin no rashes or lesions noted Skin Narrative: Incision sites are clean, dry and intact Neuro CN's II-XII intact bilaterally, moves all extremities and no focal motor deficits Psych cooperative and affect normal Charges/Coding Procedures Hospitalists Procedures: 54525 Critial Care 1st Hr
--- NOTE | 2022-09-18 07:10 | NURSING ---
Patient extubated by RT Kimberly with this RN at bedside and Dr Farfan present in ICU. Patient extubated to Room Air without complications, tolerated well. Patient complains of sore throat but denies complaint otherwise.
--- NOTE | 2022-09-18 09:56 | CASEMGMT ---
HANS RYDER Readmission Review: Operative Date: 08/02/22: TLH and bilateral salpingectomy with extended time needed due to the width of the uterus (weight was 778g) Index Admission: 08/24 thru 08/26/22 Dx: postoperative pelvic abscesses Readmission: 09/17/22 Dx: postoperative pelvic abscesses Pt with hx of IBS presented and received treatment on the above dates for the above noted procedures and diagnoses. Pt was admitted on 08/[address] guided drainage could not be performed. Pt was noted on index admission to be independent with ADLs and to have support of her spouse at discharge. Pt was to continue po augmentin at discharge. Pt has followed up with her providers s/p discharge and through ongoing evaluation has noted continued presence of the pelvic abscesses not responding to po antibiotic. Pt returned for laparoscopic evaluation of pelvic abscesses and lysis of adhesions on 09/17. Pt became tachycardic and tachypneic postoperatively and required reintubation. Pt has since been extubated and is currently on RA. Will continue to monitor and assist with any dc needs as they are identified. Jamel Clayton RN CM
--- NOTE | 2022-09-18 10:24 | CASEMGMT ---
RN ALEKSEY participated in ICU rounds, pt plan is to dc home. Pt was I in ADL's prior. Plan for po atb. at bedside and agrees. HANS RYDER to follow.
--- NOTE | 2022-09-18 13:22 | PCM.PN.OB ---
Subjective Subjective Pain well controlled. Coello catheter out but has not been up to ambulate yet. Does not feel short of breath. Denies chest pain. Somewhat hungry. Had some clear liquids and tolerated those well. Positive flatus. Objective Data Objective Data Vital Signs: Vital Signs Temp Pulse Resp BP Pulse Ox O2 Del Method FiO2 99.1 F 98 18 121/62 H 99 Room Air 25 09/18/22 13:00 09/18/22 13:00 09/18/22 13:00 09/18/22 13:00 09/18/22 13:00 09/18/22 13:00 09/18/22 07:00 Oxygen Delivery Method Room Air Weight: 103.6 kg Body Mass Index (BMI) 38.0 Intake & Output: Intake and Output for Last 24 Hours 09/16/22 09/17/22 09/18/22 23:59 23:59 23:59 Intake Total 3199.74 / 3199.74 2348.84 / 2348.84 Output Total 285 / 360 400 / 400 Balance 2914.74 / 2839.74 1948.84 / 1948.84 Lab / Micro Data Result Diagrams: 09/18/22 05:15 09/18/22 05:15 Labs: Laboratory Results - last 24 hr 09/17/22 14:40: Sodium 139, Potassium 3.5, Chloride 106, Carbon Dioxide 25.0, Anion Gap 8, BUN 16, Creatinine 1.11 H, Estim Creat Clear Calc 62.44, Est GFR (MDRD) Af Amer 71, Est GFR (MDRD) Non-Af 59 L, BUN/Creatinine Ratio 14.4, Glucose 206 H, Calcium 8.3 L, Magnesium 1.7, Total Bilirubin 0.40, AST 21, ALT 30, Alkaline Phosphatase 91, Total Protein 6.6, Albumin 2.9 L, Globulin 3.7, Albumin/Globulin Ratio 0.8 L 09/17/22 14:40: Lactic Acid 2.9 H* 09/17/22 14:40: WBC 29.0 H, RBC 5.69 H, Hgb 16.2 H, Hct 49.1 H, MCV 86.3, MCH 28.5, MCHC 33.0, RDW Std Deviation 39.7, RDW Coeff of Amie 12.8, Plt Count 380, MPV 9.5, Immature Gran % (Auto) 0.700, Neut % (Auto) 92.0 H, Lymph % (Auto) 6.2 L, [place] % (Auto) 0.7, Eos % (Auto) 0.2, Baso % (Auto) 0.2, Absolute Neuts (auto) 26.6 H, Absolute Lymphs (auto) 1.80, Nucleated RBC % 0, Differential Comment SCANNED, Platelet Estimate ADEQUATE 09/17/22 18:05: Lactic Acid 1.4 09/17/22 19:50: Lactic Acid 2.6 H* 09/18/22 05:15: WBC 20.6 H, RBC 4.40, Hgb 12.6, Hct 37.5, MCV 85.2, MCH 28.6, MCHC 33.6, RDW Std Deviation 39.6, RDW Coeff of Amie 12.9, Plt Count 301, MPV 9.2, Immature Gran % (Auto) 0.400, Neut % (Auto) 89.0 H, Lymph % (Auto) 5.8 L, [place] % (Auto) 4.3, Eos % (Auto) 0.3, Baso % (Auto) 0.2, Absolute Neuts (auto) 18.3 H, Absolute Lymphs (auto) 1.20, Nucleated RBC % 0 09/18/22 05:15: Sodium 140, Potassium 4.2, Chloride 110 H, Carbon Dioxide 21.0, Anion Gap 9, BUN 17, Creatinine 1.11 H, Estim Creat Clear Calc 59.92, Est GFR (MDRD) Af Amer 71, Est GFR (MDRD) Non-Af 59 L, BUN/Creatinine Ratio 15.3, Glucose 136 H, Calcium 7.9 L Micro: Microbiology 09/17/22 13:45 Sputum, Induced/Lukens Respiratory Culture - Preliminary Appears to be normal respiratory brandon. Further studies to follow. 09/17/22 12:25 Pelvic Abcess Wound Culture - Preliminary No growth-Final to follow ABG Data ABG results: ABG 09/17/22 09/17/22 13:12 15:35 Specimen Type ART ART Sample Site L Radial pH 7.23 L 7.27 L Bicarbonate Actual 21.5 L 24.1 Total CO2 23 26 Base Excess -6 L -3 L O2 Saturation 84 L 94 L O2 % 30 ABG pCO2 51.9 H 52.6 H ABG pO2 58 L 84 Hay Test Negative Respiration Rate 16 O2 Delivery Device Adult Vent Vent Mode AC Tidal Volume 450 POC PEEP 5 Radiography Diagnostic Testing: Radiology Impression Chest X-Ray 09/17/22 13:00 IMPRESSION: 1. The endotracheal tube terminates 2.85 cm above the abdias. No consolidation or pneumothorax is seen. Electronically Signed: Iker Briones MD at 13:51 EDT , Chest X-Ray 09/17/22 14:22 IMPRESSION: Supporting tubes as above. Electronically Signed: Iker Briones MD at 15:12 EDT , Rhythm Strip Rhythm Strip: Sinus Tach Rate: 103 Ectopy: None Physical Exam Narrative Awake, alert, no acute distress abdomen-Soft, nondistended, appropriately tender. Incisions clean dry and intact Assessment & Plan (1) Postoperative abscess: PLAN: Postoperative day #1 status post laparoscopic evacuation of pelvic abscess. Cultures are pending. Continue with IV Unasyn for now. Patient had acute respiratory failure immediately after surgery. Extubated and doing well now. Appreciate ICU team input and care. Patient is stable enough to transfer to [facility] status. May have regular diet. Will likely discharge home tomorrow. Previous cultures were sensitive to Cipro but new cultures pending.
[2022-09-18] MEDS: Heparin Injection (Vial) 5,000 UNIT/ML VIAL 5000 UNIT SC ×2 (13:39→23:13)
[2022-09-18] MEDS: Acetaminophen 325 MG Tablet 650 MG PO (23:06)
[2022-09-19 02:00] VITALS: RESP 16
[2022-09-19 04:00] VITALS: BP 131/67; PULSE 78; RESP 16; TEMP 36.7; O2SAT 97
[2022-09-19 04:43] LABS: Absolute Lymphocyte Count 2.72 X10^3/uL (0.83-4.51); Absolute Neutrophil Count 10.1 X10^3/uL (2.0-7.7); Basophil# 0.04 X10^3/uL; Basophil% 0.3 % (0-1); Eosinophil# 0.72 X10^3/uL; Eosinophils% 5.1 % (0-5); Hematocrit 30.8 % (37-47); Lymphocyte # 2.72 X10^3/ul (0.83-4.51); Lymphocyte % 19.4 % (19-41); Mean Corp Hgb Conc 32.5 g/dL (32-36); Mean Corpuscular Hgb 28.2 pg (27.0-32.0); Mean Platelet Vol. 9.5 fl (6.2-12.0); Monocyte# 0.45 X10^3/uL; Monocyte% 3.2 % (0-10); NRBC Flagged by Analyzer 0 % (0-5); Neutrophil # 10.05 X10^3/uL (2.7-7.7); Neutrophil % 71.7 % (47-70); Platelet Count 223 K/mm3 (150-450); RBC Distribution Width CV 13.2 % (11.6-14.6); RBC Distribution Width SD 41.7 fl (35.1-43.9); Red Blood Count 3.54 M/mm3 (4.2-5.4)
[2022-09-19 04:56] LABS: Anion Gap 7 (5-15); BUN 11 mg/dL (7-18); BUN/Creat Ratio 12.4 RATIO (10-20); Calcium,Total 7.7 mg/dL (8.5-10.1); Chloride 110 mmol/L (98-107); Creatinine, Serum 0.88 mg/dL (0.55-1.02); EST Glomerular Filtration Rate 76 mL/min (>60); Est Glom Filt Rate - Afr Amer 92 mL/min (>60); Estimated Creatinine Clearance 75.58 ml/min; Glucose 143 mg/dL (74-106); Potassium 3.4 mmol/L (3.5-5.1); Sodium Level 142 mmol/L (136-145)
[2022-09-19 05:18] VITALS: BMI 38.0
[2022-09-19] MEDS: Heparin Injection (Vial) 5,000 UNIT/ML VIAL 5000 UNIT SC (05:44)
--- NOTE | 2022-09-19 06:45 | PCM.PN.INT ---
Assessment & Plan Assessment/Plan (1) Postoperative abscess: (2) Respiratory failure with hypercapnia: PLAN: Plan RECOMMENDATIONS: 1. Increase ambulation as tolerated 2. Pain control per gynecology 3. Continue Zosyn. Defer to gynecology on p.o. options 4. Encourage incentive spirometer and out of bed as tolerated 5. Okay to discharge from a pulmonary perspective 6. No indication for outpatient pulmonary follow-up at this time IMPRESSIONS: 1. Acute combined respiratory failure Likely multifactorial. Patient was under anesthesia, so retention of anesthesia meds would be a consideration. No aspiration event was described. Will obtain an nasal MRSA swab. We will continue patient on Zosyn for now pending culture data. Repeat chest x-ray did not show any significant infiltrates. Patient does not have any history of previous respiratory difficulties and is not a smoker, so we will not schedule bronchodilators for now. Patient does not appear to have any residual findings that require outpatient pulmonary follow-up 2. Hypotension Resolved. Patient did receive some medications that could cause hypotension. Other possible etiology is bacteremia secondary to drainage of pelvic abscess. Will broaden antibiotics as patient has been on ciprofloxacin previously to Zosyn. Patient does not have any history of MDRO, so and less nasal MRSA is positive, we will hold off on vancomycin for now. Leukocytosis has improved over the last 24 hours. Defer to gynecology on p.o. options and course. Okay to discharge from pulmonary perspective 3. Pelvic abscess following hysterectomy Patient reportedly tolerated the procedure well. There does not appear to be a reason to think postoperative hemorrhage as an etiology. Repeat CBC has been ordered, but we will hold on any transfusions at this time. Labs prior to procedure were within normal limits. Subjective Subjective Patient did well overnight. Patient has had some sore throat and hoarseness, but no respiratory complaints. Patient was able to walk around the unit without difficulty. Patient states her throat feels like I had a cold, but I did not. Objective Data Objective Data Vital Signs: Vital Signs Temp Pulse Resp BP Pulse Ox O2 Del Method FiO2 36.7 C 78 16 131/67 H 97 Room Air 25 09/19/22 04:00 09/19/22 04:00 09/19/22 04:00 09/19/22 04:00 09/19/22 04:00 09/19/22 04:00 09/18/22 07:00 Oxygen Delivery Method Room Air Weight: 103.6 kg Body Mass Index (BMI) 38.0 Intake & Output: Intake and Output for Last 24 Hours 09/17/22 09/18/22 09/19/22 23:59 23:59 23:59 Intake Total 3199.74 / 3199.74 2398.84 / 3198.84 850 / 850 Output Total 285 / 360 400 / 400 Balance 2914.74 / 2839.74 1998.84 / 2798.84 850 / 850 Lab / Micro Data Attestation: I reviewed the patient's lab results. Result Diagrams: 09/19/22 04:35 09/19/22 04:35 Labs: Laboratory Results - last 24 hr 09/19/22 04:35: WBC 14.0 H, RBC 3.54 L, Hgb 10.0 L, Hct 30.8 L, MCV 87.0, MCH 28.2, MCHC 32.5, RDW Std Deviation 41.7, RDW Coeff of Amie 13.2, Plt Count 223, MPV 9.5, Immature Gran % (Auto) 0.300, Neut % (Auto) 71.7 H, Lymph % (Auto) 19.4, [place] % (Auto) 3.2, Eos % (Auto) 5.1 H, Baso % (Auto) 0.3, Absolute Neuts (auto) 10.1 H, Absolute Lymphs (auto) 2.72, Nucleated RBC % 0 09/19/22 04:35: Sodium 142, Potassium 3.4 L, Chloride 110 H, Carbon Dioxide 25.0, Anion Gap 7, BUN 11, Creatinine 0.88, Estim Creat Clear Calc 75.58, Est GFR (MDRD) Af Amer 92, Est GFR (MDRD) Non-Af 76, BUN/Creatinine Ratio 12.4, Glucose 143 H, Calcium 7.7 L Micro: Microbiology 09/17/22 13:45 Sputum, Induced/Lukens Gram Stain - Final 09/17/22 13:45 Sputum, Induced/Lukens Respiratory Culture - Preliminary Appears to be normal respiratory brandon. Further studies to follow. 09/17/22 12:25 Pelvic Abcess Gram Stain - Final 09/17/22 12:25 Pelvic Abcess Wound Culture - Preliminary No growth-Final to follow Rhythm Strip Rhythm Strip: Sinus Rhythm Rate: 75 Ectopy: None Physical Exam Const alert, oriented x3 and no apparent distress General Appearance: cooperative and well developed HEENT normocephalic and head/scalp atraumatic Eyes PERRL, EOMs intact bilaterally, conjunctivae normal and no scleral icterus Neck no lymphadenopathy and supple Chest inspection of chest normal Resp Auscultation: clear to auscultation bilaterally; Negative for rales, rhonchi or wheezes Cardio regular rate, regular rhythm, S1 normal heart sound, S2 normal heart sound, no murmurs, no rub and no gallops GI GI Narrative: 3 small incisions noted that have been Dermabond together. No ecchymosis or induration noted. Extremity no clubbing, cyanosis or edema Skin no rashes or lesions noted Skin Narrative: Incision sites are clean, dry and intact Neuro CN's II-XII intact bilaterally, moves all extremities and no focal motor deficits Psych cooperative and affect normal Mood & Affect: flat affect Charges/Coding Visit Charges Inpatient E&M: 94067 Subs Hosp L2
--- NOTE | 2022-09-19 08:16 | PCM.DC.SUM ---
Providers Date of Admission: 09/17/22 Primary Care Physician: MABEL Ferris Consultations 09/17/22 17:58 Consult: Geothermal Installer / Pulmonary Medicine Routine Consulting Provider: Pulmonary Medicine abdirizak Beebe Reason for Consult: SOB EMERGENT Consult: Yes MD Notified: Yes Date Notified: 09/17/22 Time Notified: 13:00 Method of Notification: phone Method of Consult:: In-Person Comments:: Surgeon spoke directly to Dr Farfan Diagnosis Discharge Diagnosis (1) Postoperative abscess: Status: Acute Code(s): T81.49XA - Infection following a procedure, other surgical site, initial encounter Plan: Postoperative day #2 status post laparoscopic evacuation of pelvic abscess. Cultures are pending. Has been on IV zosyn and remains afebrile. Previous cultures were sensitive to cipro so will d/c her home on this while other cultures pending. Adjust as needed. Follow up in the office in 5-7 days or prn. Pain controlled w/ OTC meds and has some oxycodone for prn use from previous admission. Ambulate. reviewed postop restrictions/expetations (2) Respiratory failure with hypercapnia: Status: Acute Code(s): J96.92 - Respiratory failure, unspecified with hypercapnia Medications at Discharge Home Medications multivitamin with folic acid 400 mcg tablet 1 tab PO DAILY supplement 07/20/14 Lactobacil.acidophilus-Bifido.animalis 5 billion cell sprinkle capsule (Probiotic) 1 cap PO DAILY 09/14/22 Hospital Course Summary of Care Provided Minutes Spent on Discharge: 22 Physical Exam Narrative Awake alert, no acute distress Skin warm dry and intact Abdomen soft, nondistended, appropriately and mildly tender. Incisions are clean dry and intact. Weight / BMI Weight Weight: 103.6 kg Body Mass Index (BMI) 38.0 ABG / Lab / Microbiology Data Result Diagrams: 09/19/22 04:35 09/19/22 04:35 Laboratory: Laboratory Results - last 24 hr 09/19/22 04:35: WBC 14.0 H, RBC 3.54 L, Hgb 10.0 L, Hct 30.8 L, MCV 87.0, MCH 28.2, MCHC 32.5, RDW Std Deviation 41.7, RDW Coeff of Amie 13.2, Plt Count 223, MPV 9.5, Immature Gran % (Auto) 0.300, Neut % (Auto) 71.7 H, Lymph % (Auto) 19.4, [place] % (Auto) 3.2, Eos % (Auto) 5.1 H, Baso % (Auto) 0.3, Absolute Neuts (auto) 10.1 H, Absolute Lymphs (auto) 2.72, Nucleated RBC % 0 09/19/22 04:35: Sodium 142, Potassium 3.4 L, Chloride 110 H, Carbon Dioxide 25.0, Anion Gap 7, BUN 11, Creatinine 0.88, Estim Creat Clear Calc 75.58, Est GFR (MDRD) Af Amer 92, Est GFR (MDRD) Non-Af 76, BUN/Creatinine Ratio 12.4, Glucose 143 H, Calcium 7.7 L Microbiology: Microbiology 09/17/22 13:45 Sputum, Induced/Lukens Gram Stain - Final 09/17/22 13:45 Sputum, Induced/Lukens Respiratory Culture - Preliminary Appears to be normal respiratory brandon. Further studies to follow. 09/17/22 12:25 Pelvic Abcess Gram Stain - Final 09/17/22 12:25 Pelvic Abcess Wound Culture - Preliminary No growth-Final to follow D/C Instructions Discharge Diet: No restrictions May resume sexual activity in: 1 week Call your doctor if your incision/area has: Continuous Slow Oozing, Increased Pain/ Swelling and Foul Smelling Discharge Call your doctor if you observe: Fever of 101 or Higher and Using more than 1 pad per hour Cleanse incision/area with: Soap & Water Please Follow Up With: Kalyn Nguyen MD When: 1-2 weeks or as needed. [phone] Meaningful Use Info Meaningful Use Diagnoses (Choose all that apply): None applicable Discharge Plan Admission Admit Date/Time: 09/17/22 13:59 Primary Reason for Your Visit: Postoperative pelvic abscess and acute respiratory failure Attending Provider: Kalyn Nguyen Primary Care Provider: Kendra Grande NP Consulting Providers: Rc Farfan ; Jacob Guadarrama ; Zhou Bowman ; Cortes Herbert ; Ct Ridley NP Instructions Additional Instructions / Restrictions: Resume your ciprofloxacin prescription as previously prescribed. Discharge Orders/Prescriptions Prescriptions: Continued multivitamin with folic acid 1 TABLET tablet 1 tab PO DAILY Probiotic 5 billion cell Capsule, Sprinkle 1 cap PO DAILY Referrals / Follow Up: Kendra Grande TELEVISION REPAIR TEACHER, TELEVISION REPAIR TEACHER-C [Primary Care Provider] - Disposition Disposition (needs filled in before D/C Order can be placed): Home, Self Care
[2022-09-19 09:14] VITALS: BP 128/81; PULSE 82; RESP 18; TEMP 36.7; O2SAT 99
== END 2022-09-19 10:42 | disposition home or self-care (01) | DRG 982 ==
LOC: ICU 15:40 → SDC 15:40 → ICU 15:40
PROVIDERS: Internal Medicine Critical Care Medicine; Admitting Provider Obstetrics & Gynecology; PCP Nurse Practitioner Family; Referring Provider Nurse Practitioner Family; Visit Provider Obstetrics & Gynecology
PROC: 0U904ZZ Drainage of Right Ovary, Percutaneous Endoscopic Approach (ICD-10-PCS; CPT 49320; principal; 2022-09-17 11:15)
DX: J96.01 Acute respiratory failure with hypoxia (principal); J96.02 Acute respiratory failure with hypercapnia; I95.2 Hypotension due to drugs; T41.205A Adverse effect of unspecified general anesthetics, initial encounter; Y92.239 Unspecified place in hospital as the place of occurrence of the external cause; T81.49XA Infection following a procedure, other surgical site, initial encounter; N73.9 Female pelvic inflammatory disease, unspecified; Y83.8 Other surgical procedures as the cause of abnormal reaction of the patient, or of later complication, without mention of misadventure at the time of the procedure; N83.201 Unspecified ovarian cyst, right side; E66.9 Obesity, unspecified; Z68.38 Body mass index [BMI] 38.0-38.9, adult; Z90.710 Acquired absence of both cervix and uterus
CPT/HCPCS: 31720; 36600; 71045; 80048; 80053; 82803; 83605; 83735; 85025; 85027; 86850; 86900; 86901; 87040; 87070; 87075; 87086; 87205; 94002; 94003; 94660; 94668; 94762; 99252; J7030; J7050; J7120; G0463; J2405; J3010